=== PATIENT | male | born 1965 | race Caucasian/White ===

== ENCOUNTER 2018-08-27 11:25 | Inpatient (IN) ==
[2018-08-27 12:45] LABS: Basophils # (auto) 0.02 K/uL (0-0.2); Basophils % (auto) 0.1 %; Eosinophils # (auto) 0.03 K/uL (0-0.5); Eosinophils % (auto) 0.2 %; Hematocrit (blood only) 43.8 % (42-52); Hemoglobin 15.5 g/dL (14.0-18.0); Immature Granulocytes # (auto) 0.04 K/uL (0.00-0.02); Immature Granulocytes % (auto) 0.3 %; Lymphocytes # (auto) 0.69 K/uL (1.2-3.4); Lymphocytes % (auto) 4.6 %; Mean Corpuscular Hgb Conc 35.4 g/dL (32-36); Mean Corpuscular Volume 90.9 fL (80-100); Mean Platelet Volume 10.8 fL (7.4-10.4); Monocytes # (auto) 1.81 K/uL (0.11-0.59); Monocytes % (auto) 12.1 %; Neutrophils # (auto) 12.42 K/uL (1.4-6.5); Neutrophils % (auto) 82.7 %; Platelet Count 238 K/uL (130-400); RDW Coefficient of Variation 12.8 % (11.5-14.5); RDW Standard Deviation 42.9 fL (36.4-46.3); Red Blood Count 4.82 M/uL (4.7-6.1); White Blood Count 15.01 K/uL (4.8-10.8)
[2018-08-27 12:55] LABS: INR 1.2 (0.9-1.1); Prothrombin Time 11.9 Seconds (9.0-12.0)
[2018-08-27 13:00] LABS: Albumin Level 3.9 gm/dl (3.4-5.0); BUN Creatinine Ratio 19.8 (10-20); Calcium 9.8 mg/dl (8.5-10.1); Creatinine Clr Calc Pharmacy 82.1 ml/min; Est GFR (African American) 72.4; Est GFR (Non-African American) 62.5; Potassium 3.9 mmol/L (3.5-5.1)
--- NOTE | 2018-08-27 13:02 | XRay Report ---
XR foot RT min 3V routine CLINICAL HISTORY: R foot infection puncture ball of foot COMPARISON: None. DISCUSSION: No acute fractures or dislocations are visualized. 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 There is calcaneal spurring. There are ivana nt calcifications within the plantar fascia posteriorly. No radiopaque foreign bodies are visualized. THERE IS NO EVIDENCE FOR SOFT TISSUE SWELLING. IMPRESSION: 1. No acute fractures 2. Calcaneal spurring 3. Plantar fascial calcification 4. No radiopaque foreign bodies identified Electronically signed by: Elias Lua M.D. 08/27/2018 1:01 PM
[2018-08-27 13:03] LABS: Albumin Globulin Ratio 0.8 (0.9-2); Bilirubin,Total 1.3 mg/dl (0.2-1); Globulin 4.7 gm/dl (2.5-4.0); Total Protein 8.6 gm/dl (6.4-8.2)
--- NOTE | 2018-08-27 13:07 | Emergency Department Note ---
History of Present Illness General Chief complaint: Foot Injury/Pain Stated complaint: RIGHT FOOT Time Seen by Provider: 08/27/18 11:53 History of Present Illness Maximum Pain Intensity: 5 This patient is a 52-year-old male with a history of type 2 diabetes that presents to the emergency department with redness and swelling to the right foot for the last several days. The patient was mowing his lawn and flip-flops 4 days ago and thinks that he may have injured it then. He also reports the following day after mowing, developing a productive cough with green sputum. He denies any shortness of breath. His fever has been hovering around 100 �F. He has been taking Tylenol with minimal relief of his symptoms. The pain in the foot is throbbing in nature. He rates it a 5/10, worse with weightbearing. The patient admits to not taking care of his type 2 diabetes for the last 2 years. Home Medications Home Medications Medication Instructions Recorded Confirmed Type acetaminophen [Acetaminophen Extra 500 mg PO Q6H PRN 08/27/18 08/27/18 History Strength] guaifenesin 1,200 mg PO Q12H PRN 08/27/18 08/27/18 History Allergies Allergy/AdvReac Type Severity Reaction Status Date / Time Penicillins Allergy Intermediate RASH, SOB Verified 08/27/18 12:51 Past Med/Surg History Medical History Acute bronchitis (Acute) Puncture wound of right foot (Acute) Cellulitis of right foot (Acute) Diabetes Social History Preferred Language: Gibraltarian Communication Ability: Effective Auth Specialist Required: No Beliefs That Will Affect Care: None Current Living Situation: Spouse and Family Other Information That Helps Us Care for You: No Feels Safe at Home: Yes Safety Concerns: Feels Safe At This Time Smoking Status: Never smoker Do You Dip or Chew Tobacco: No Second Hand Exposure: No Tobacco Cessation Education Requested by Patient: No Hx Alcohol Use: No Hx Substance Use: No Review of Systems A total of 10 systems reviewed and were otherwise negative Physical Exam Vital Signs Vital Signs - 24 hr 08/27/18 15:09 Temperature 38.3 C H Temperature Source Oral Pulse Rate [Right Finger] 106 H Respiratory Rate 22 Respiratory Effort / Characteristics Non-Labored Spontaneous Respiratory Depth Normal Respiratory Pattern Regular Blood Pressure [Right Arm] 128/80 Blood Pressure Mean [Right Arm] 96 Blood Pressure Position [Right Arm] Lying Pulse Oximetry 97 Oxygen Delivery Method Room Air Constitutional WD/WN, vitals as above Eyes EOM intact bilaterally ENMT Oral mucosa dry Neck trachea midline Respiratory normal respiratory effort, lungs clear to auscultation Cardiovascular RRR, no murmur, no edema Gastrointestinal (Abdomen) normal bowel sounds, soft, nontender, no hepatosplenomegaly Musculoskeletal Diffuse erythema and edema noted to the right foot. There is a 2 mm puncture wound with surrounding blanching noted. No foul odor. Erythematous streaking noted of the anterior lower extremity stopping at the knee. Sensation in the toes is intact. Dorsiflexion and plantarflexion intact. Skin no rashes, warm and dry Neurologic Alert and oriented x3. No focal motor deficits. Psychiatric Acting appropriately Course Patient was seen and examined Vital signs including blood pressure were reviewed medications list was verified with patient Labs were obtained, and a saline lock was established The patient was hydrated with 1 L of normal saline. He declined pain medicat ion. Upon reevaluation, the patient was resting comfortably. We reviewed his results. He voiced understanding. At this time, he was requesting pain medication. He was ordered Toradol 30 mg The case was discussed with case management and subsequently the [facility] hospitalist group. They kindly agreed to evaluate the patient for possible inpatient management. The patient was in agreement. Administered Medications Acetaminophen (Tylenol) 650 mg PO Q4H PRN PRN Reason: pain/fever Stop: 09/26/18 17:47 Last Admin: 08/28/18 08:04 Dose: 650 mg Documented by: [id number] Admin: 08/27/18 20:32 Dose: 650 mg Documented by: [id number] Albuterol (Combivent Respimat) 1 puffs INH QID [facility] Stop: 09/27/18 12:59 Last Admin: 08/28/18 12:48 Dose: 1 puffs Documented by: [id number] Benzonatate (Tessalon Perle) 100 mg PO TID [facility] Stop: 09/27/18 08:59 Last Admin: 08/28/18 14:09 Dose: 100 mg Documented by: [id number] Admin: 08/28/18 08:05 Dose: 100 mg Documented by: [id number] Enoxaparin Sodium (Lovenox) 40 mg SQ Q24H [facility] Stop: 09/26/18 20:59 Last Admin: 08/27/18 20:32 Dose: 40 mg Documented by: [id number] Fexofenadine HCl (Debbie) 60 mg PO BID [facility] Stop: 09/27/18 11:29 Last Admin: 08/28/18 12:40 Dose: 60 mg Documented by: [id number] Guaifenesin (Mucinex) 1,200 mg PO Q12 [facility] Stop: 09/27/18 11:24 Last Admin: 08/28/18 12:40 Dose: 1,200 mg Documented by: [id number] Clindamycin Phosphate 600 mg/ (Dextrose) 54 mls @ 100 mls/hr IV Q8H [facility] Stop: 09/06/18 15:59 Last Infusion: 08/28/18 08:40 Dose: 0 mls/hr Documented by: [id number] Admin: 08/28/18 08:05 Dose: 100 mls/hr Documented by: [id number] Infusion: 08/28/18 00:40 Dose: 100 mls/hr Documented by: [id number] Admin: 08/28/18 00:07 Dose: 100 mls/hr Documented by: [id number] Cefepime HCl 1,000 mg/ Syringe 11.3 mls @ 5.5 mls/min IV Q8H [facility]; Protocol Stop: 09/06/18 17:59 Last Admin: 08/28/18 10:26 Dose: 5.5 mls/min Documented by: [id number] Admin: 08/28/18 01:58 Dose: 5.5 mls/min Documented by: [id number] Sodium Chloride (Nss 1000ml) 1,000 mls @ 80 mls/hr IV .[id number] [facility] Stop: 09/26/18 17:47 Last Admin: 08/28/18 06:25 Dose: 80 mls/hr Documented by: [id number] Infusion: 08/28/18 06:25 Dose: 80 mls/hr Documented by: [id number] Admin: 08/27/18 18:29 Dose: 80 mls/hr Documented by: [id number] Insulin Aspart (Novolog Flexpen) 0 units SC ACHS [facility] Stop: 09/26/18 17:47 Last Admin: 08/28/18 12:45 Dose: 8 units Documented by: [id number] Cosigned by: [id number] Admin: 08/28/18 08:32 Dose: 5 units Documented by: [id number] Cosigned by: [id number] Admin: 08/27/18 21:58 Dose: Not Given Documented by: [id number] Cosigned by: [id number] Admin: 08/27/18 18:44 Dose: 3 units Documented by: [id number] Cosigned by: [id number] Lactobacillus Acidophilus (Floranex) 4 tab PO TIDM [facility] Stop: 09/27/18 11:59 Last Admin: 08/28/18 12:40 Dose: 4 tab Documented by: [id number] Discontinued Medications Diphtheria/Pertussis/Tetanus Vacc (Adacel) 0.5 ml IM .ONCE ONE Stop: 08/28/18 11:22 Last Admin: 08/28/18 12:41 Dose: 0.5 ml Documented by: [id number] Cefepime HCl (Maxipime) 2,000 mg in 20 mls @ 5 mls/min IV NOW STA; Protocol Stop: 08/27/18 15:27 Last Admin: 08/27/18 16:31 Dose: 5 mls/min Documented by: [id number] Vancomycin HCl 2,500 mg/ (Sodium Chloride) 550 mls @ 200 mls/hr IV NOW ONE; Protocol Stop: 08/27/18 18:08 Last Admin: 08/27/18 16:15 Dose: Not Given Documented by: [id number] Clindamycin Phosphate 900 mg/ (Dextrose) 56 mls @ 112 mls/hr IV ONE ONE Stop: 08/27/18 16:19 Last Infusion: 08/27/18 16:36 Dose: 0 mls/hr Documented by: [id number] Admin: 08/27/18 16:10 Dose: 112 mls/hr Documented by: [id number] Vancomycin HCl 2,500 mg/ (Sodium Chloride) 550 mls @ 200 mls/hr IV NOW ONE; Protocol Stop: 08/28/18 13:29 Last Admin: 08/28/18 11:10 Dose: 200 mls/hr Documented by: [id number] Ketorolac Tromethamine (Toradol) 30 mg IV NOW STA Stop: 08/27/18 14:54 Last Admin: 08/27/18 15:11 Dose: 30 mg Documented by: [id number] Medical Decision Making Medical Records Attestation: I reviewed the patient's medical records. Home Medications Current Medication List: was personally reviewed by me Laboratory Data Attestation: I reviewed the patient's lab results. Result diagrams: 08/28/18 05:28 08/28/18 05:28 Lab Results 08/27/18 08/27/18 08/27/18 Range/Units 12:25 12:25 12:25 WBC (4.8-10.8) K/uL RBC (4.7-6.1) M/uL Hgb (14.0-18.0) g/dL Hct (42-52) % MCV (80-100) fL MCH (25-34) pg MCHC (32-36) g/dL RDW Std Deviation (36.4-46.3) fL RDW Coeff of Lisandro (11.5-14.5) % Plt Count (130-400) K/uL MPV (7.4-10.4) fL Immature Gran % (Auto) % Neut % (Auto) % Lymph % (Auto) % [place] % (Auto) % Eos % (Auto) % Baso % (Auto) % Immature Gran # (Auto) (0.00-0.02) K/uL Neut # (Auto) (1.4-6.5) K/uL Lymph # (Auto) (1.2-3.4) K/uL [place] # (Auto) (0.11-0.59) K/uL Eos # (Auto) (0-0.5) K/uL Baso # (Auto) (0-0.2) K/uL PT (9.0-12.0) Seconds INR (0.9-1.1) Sodium (136-145) mmol/L Potassium (3.5-5.1) mmol/L Chloride (98-107) mmol/L Carbon Dioxide (21-32) mmol/L Anion Gap (3-11) BUN (7-18) mg/dl Creatinine (0.6-1.4) mg/dl Est Cr Clr Drug Dosing ml/min Est GFR ( Amer) Est GFR (Non-Af Amer) BUN/Creatinine Ratio (10-20) Glucose (70-99) mg/dl Estimat Average Glucose mg/dl Hemoglobin A1c (4.5-5.6) % Lactate 1.4 (0.4-2.0) mmol/L Calcium (8.5-10.1) mg/dl Total Bilirubin (0.2-1) mg/dl AST (15-37) U/L ALT (12-78) U/L Alkaline Phosphatase (45-117) U/L Total Protein (6.4-8.2) gm/dl Albumin (3.4-5.0) gm/dl Globulin (2.5-4.0) gm/dl Albumin/Globulin Ratio (0.9-2) Procalcitonin 0.24 (0-0.5) ng/ml Acetaminophen < 2 L (10-30) ug/ml Influenza Type A (PCR) (Neg) Influenza Type B (PCR) (Neg) 08/27/18 08/27/18 08/27/18 Range/Units 12:26 12:26 12:26 WBC 15.01 H (4.8-10.8) K/uL RBC 4.82 (4.7-6.1) M/uL Hgb 15.5 (14.0-18.0) g/dL Hct 43.8 (42-52) % MCV 90.9 (80-100) fL MCH 32.2 (25-34) pg MCHC 35.4 (32-36) g/dL RDW Std Deviation 42.9 (36.4-46.3) fL RDW Coeff of Lisandro 12.8 (11.5-14.5) % Plt Count 238 (130-400) K/uL MPV 10.8 H (7.4-10.4) fL Immature Gran % (Auto) 0.3 % Neut % (Auto) 82.7 % Lymph % (Auto) 4.6 % [place] % (Auto) 12.1 % Eos % (Auto) 0.2 % Baso % (Auto) 0.1 % Immature Gran # (Auto) 0.04 H (0.00-0.02) K/uL Neut # (Auto) 12.42 H (1.4-6.5) K/uL Lymph # (Auto) 0.69 L (1.2-3.4) K/uL [place] # (Auto) 1.81 H (0.11-0.59) K/uL Eos # (Auto) 0.03 (0-0.5) K/uL Baso # (Auto) 0.02 (0-0.2) K/uL PT 11.9 (9.0-12.0) Seconds INR 1.2 H (0.9-1.1) Sodium 134 L (136-145) mmol/L Potassium 3.9 (3.5-5.1) mmol/L Chloride 99 (98-107) mmol/L Carbon Dioxide 27 (21-32) mmol/L Anion Gap 7.0 (3-11) BUN 26 H (7-18) mg/dl Creatinine 1.32 (0.6-1.4) mg/dl Est Cr Clr Drug Dosing 82.1 ml/min Est GFR ( Amer) 72.4 Est GFR (Non-Af Amer) 62.5 BUN/Creatinine Ratio 19.8 (10-20) Glucose 226 H (70-99) mg/dl Estimat Average Glucose mg/dl Hemoglobin A1c (4.5-5.6) % Lactate (0.4-2.0) mmol/L Calcium 9.8 (8.5-10.1) mg/dl Total Bilirubin 1.3 H (0.2-1) mg/dl AST 32 (15-37) U/L ALT 61 (12-78) U/L Alkaline Phosphatase 105 (45-117) U/L Total Protein 8.6 H (6.4-8.2) gm/dl Albumin 3.9 (3.4-5.0) gm/dl Globulin 4.7 H (2.5-4.0) gm/dl Albumin/Globulin Ratio 0.8 L (0.9-2) Procalcitonin (0-0.5) ng/ml Acetaminophen (10-30) ug/ml Influenza Type A (PCR) (Neg) Influenza Type B (PCR) (Neg) 08/27/18 08/27/18 Range/Units 12:26 12:28 WBC (4.8-10.8) K/uL RBC (4.7-6.1) M/uL Hgb (14.0-18.0) g/dL Hct (42-52) % MCV (80-100) fL MCH (25-34) pg MCHC (32-36) g/dL RDW Std Deviation (36.4-46.3) fL RDW Coeff of Lisandro (11.5-14.5) % Plt Count (130-400) K/uL MPV (7.4-10.4) fL Immature Gran % (Auto) % Neut % (Auto) % Lymph % (Auto) % [place] % (Auto) % Eos % (Auto) % Baso % (Auto) % Immature Gran # (Auto) (0.00-0.02) K/uL Neut # (Auto) (1.4-6.5) K/uL Lymph # (Auto) (1.2-3.4) K/uL [place] # (Auto) (0.11-0.59) K/uL Eos # (Auto) (0-0.5) K/uL Baso # (Auto) (0-0.2) K/uL PT (9.0-12.0) Seconds INR (0.9-1.1) Sodium (136-145) mmol/L Potassium (3.5-5.1) mmol/L Chloride (98-107) mmol/L Carbon Dioxide (21-32) mmol/L Anion Gap (3-11) BUN (7-18) mg/dl Creatinine (0.6-1.4) mg/dl Est Cr Clr Drug Dosing ml/min Est GFR ( Amer) Est GFR (Non-Af Amer) BUN/Creatinine Ratio (10-20) Glucose (70-99) mg/dl Estimat Average Glucose 209 mg/dl Hemoglobin A1c 8.9 H (4.5-5.6) % Lactate (0.4-2.0) mmol/L Calcium (8.5-10.1) mg/dl Total Bilirubin (0.2-1) mg/dl AST (15-37) U/L ALT (12-78) U/L Alkaline Phosphatase (45-117) U/L Total Protein (6.4-8.2) gm/dl Albumin (3.4-5.0) gm/dl Globulin (2.5-4.0) gm/dl Albumin/Globulin Ratio (0.9-2) Procalcitonin (0-0.5) ng/ml Acetaminophen (10-30) ug/ml Influenza Type A (PCR) Neg for Influ A (Neg) Influenza Type B (PCR) Neg for Influ B (Neg) Imaging Data Attestation: I personally reviewed and interpreted this imaging study as follows : Radiologist's Impression: Foot x-ray IMPRESSION: 1. No acute fractures 2. Calcaneal spurring 3. Plantar fascial calcification 4. No radiopaque foreign bodies identified Electronically signed by: Elias Lua M.D. 08/27/2018 1:01 PM Dictated: 08/27/18 1300 CXR IMPRESSION: No acute process. Electronically signed by: Sami Dozier M.D. 08/27/2018 2:19 PM Dictated: 08/27/18 1416 Transcribed: 08/27/18 1416 Transcribed: 08/27/18 1300 MDM Narrative Differential diagnosis: Cellulitis, osteomyelitis, foreign body, DVT, viral syndrome, pneumonia, bronchitis, among others This patient is a 52-year-old male presents emergency department with redness and swelling to the right foot. On exam, he had a significant cellulitis and what appeared to be a puncture wound in the foot. The patient was febrile tachycardic. The patient has a history of type 2 diabetes, and is currently not on any medication or following with a doctor. The patient also had a respiratory illness. His labs reveal leukocytosis. Imaging was fairly unremarkable. Due to the extent of the cellulitis, leukocytosis tachycardia and fever, hospice consultation was felt warranted. They will evaluate the patient for possible inpatient management. Patient was in agreement with this plan Impression & Plan Cellulitis Discharge Plan Visit Data *Final* Discharge Date/Time: 08/27/18 17:20 Chief Complaint: Foot Injury/Pain Stated Complaint: RIGHT FOOT ED Provider: Narendra Lacey ED Midlevel Provider: Saloni Olivera Discharge Problem: Cellulitis Patient Disposition: Admitted As Inpatient Condition: Fair Discharge Instructions Interventions: ED Discharge Assessment Last Done: 08/27/18 17:20
[2018-08-27 13:18] LABS: Influenza A virus by PCR Neg for Influ A (Neg); Influenza B virus by PCR Neg for Influ B (Neg)
--- NOTE | 2018-08-27 14:21 | XRay Report ---
XR chest 2V routine HISTORY: cough fever COMPARISON: Chest 05/03/2014. FINDINGS: The lungs are clear. Cardiac silhouette is normal in size. No pleural effusions. No pneumot horax. IMPRESSION: No acute process. Electronically signed by: Sami Dozier M.D. 08/27/2018 2:19 PM
[2018-08-27] MEDS ORDERED: KETOROLAC 30 MG/ML VIAL IV STA (14:53)
[2018-08-27] MEDS ORDERED: CEFEPIME 2,000 MG/20 ML VIAL IV STA (15:24)
[2018-08-27] MEDS ORDERED: VANCOMYCIN HCL 2,500 MG in SODIUM CHLORIDE 0.9% 500 ML IV ONE (15:24)
[2018-08-27] MEDS ORDERED: VANCOMYCIN CONSULT ACTIVE PRN (15:24)
[2018-08-27] MEDS ORDERED: CLINDAMYCIN 900 MG in DEXTROSE 5% 50 ML IV ONE (15:50)
--- NOTE | 2018-08-27 16:24 | History & Physical Report ---
Date of Service August 27, 2018 Assessment & Plan (1) Cellulitis of right foot: Administer clindamycin and cefepime to cover anaerobes, gram positives and gram negatives. Obtain wound culture. Serial lab studies Present on Admission?: Yes (2) Puncture wound of right foot: Obtain wound culture Present on Admission?: Yes (3) Acute bronchitis: Obtain sputum culture if sputum is produced Present on Admission?: Yes (4) Diabetes mellitus: ADA diet. Sliding scale insulin coverage as needed. Check hemoglobin A1c. Consider diabetic education Present on Admission?: Yes History of Present Illness Chief Complaint: Productive cough, puncture wound plantar aspect right foot, diffuse swelling erythema and tenderness right foot Primary Care Provider: NO PCP 52-year-old diabetic male who takes no medications. He developed a productive cough several days ago. He also developed swelling tenderness and erythema of the right foot about 3 days ago and noticed a small puncture wound on the right forefoot lateral plantar surface of the right foot. Purulent fluid is able to be expressed. He has a fever and leukocytosis at this time. He does not appear to be septic however with normal lactic acid level. Chest x-ray is clear. He does symptomatically have acute bronchitis. Glucose is 226 nonfasting. He is admitted for further evaluation and treatment. Intravenous clindamycin for gram-positive and anaerobic coverage has been administered in the ED along with cefepime for gram-negative coverage. Allergies Allergy/AdvReac Type Severity Reaction Status Date / Time Penicillins Allergy Intermediate RASH, SOB Verified 08/27/18 12:51 Home Medications Home Medications Medication Instructions Recorded Confirmed Type acetaminophen [Acetaminophen Extra 500 mg PO Q6H PRN 08/27/18 08/27/18 History Strength] guaifenesin 1,200 mg PO Q12H PRN 08/27/18 08/27/18 History Past Med/Surg History Medical History Diabetes Social History Feels Safe at Home: Yes Smoking Status: Never smoker Review of Systems Review of Systems: All systems reviewed & are unremarkable except as noted in HPI & below Musculoskeletal: Swelling and tenderness of the right foot Integumentary: Erythema of the right foot with streaking moving up the right leg anteriorly up to the knee. Puncture wound on the forefoot anterior lateral plantar surface with surrounding pallor. Physical Exam Constitutional: WD/WN, vitals as above no acute distress, not ill appearing and no altered mental status Eyes: PERRL, conjunctivae normal, anicteric sclerae ENMT: external ear and nose normal, oropharynx normal Neck: trachea midline, no thyromegaly Respiratory: Midline rhonchi. No wheezing. No dullness to percussion. Cardiovascular: RRR, no murmur, no edema Gastrointestinal (Abdomen): normal bowel sounds, soft, nontender, no hepatosplenomegaly Musculoskeletal: Mild edema and tenderness of the right foot Skin: Diffuse erythema of the right plantar surface with streaking extending proximally up the right leg up to the knee. Puncture wound with purulent mate rial expressed from the plantar anterior lateral surface with surrounding pale skin which possibly could turn necrotic. Neurologic: CN's II-XI intact bilaterally and moves all extremities; no focal motor deficits Results & Data Vital Signs (Past 12 Hours) Vital Signs Temp Pulse Pulse Resp BP BP Pulse Ox 08/27/18 15:09 38.3 C H 106 H 22 128/80 97 08/27/18 11:29 37 C 109 H 18 172/79 H 97 Laboratory Results 08/27/18 12:26 08/27/18 12:26
[2018-08-27] MEDS ORDERED: ONDANSETRON INJ 2 MG/ML 2 ML VIAL IV PRN (17:48)
[2018-08-27] MEDS ORDERED: ALUMINUM/MAGNESIUM SUSP 30 ML UDC PO PRN (17:48)
[2018-08-27] MEDS: SODIUM CHLORIDE 0.9% 1000ML 1,000 ML IV SCH (18:29)
[2018-08-27] MEDS ORDERED: CARBOHYDRATES FOR HYPOGLYCEMIA PO PRN (18:30)
[2018-08-27] MEDS ORDERED: GLUCOSE 40% GEL 15 GM TUBE PO PRN (18:30)
[2018-08-27] MEDS ORDERED: GLUCOSE 10 TABS/TUBE PO PRN (18:30)
[2018-08-27] MEDS ORDERED: GLUCAGON FOR INJ 1 MG VIAL IM PRN (18:30)
[2018-08-27] MEDS ORDERED: DEXTROSE 50% 50 ML SYRINGE IV PRN (18:30)
[2018-08-27] MEDS: INSULIN ASPART 100 UNITS/ML 3 ML PEN SC SCH ×2 (18:44→21:58)
--- NOTE | 2018-08-27 19:35 | CT Scan Report ---
CT SCAN OF THE RIGHT FOOT WITHOUT IV CONTRAST CLINICAL HISTORY: Puncture wound. Cellulitis. COMPARISON STUDY: Radiographs of the right foot dated 08/27/2018. TECHNIQUE: CT scan of the right foot is performed from the distal tibia and fibula to the base of the foot. Images are reviewed in the axial, sagittal, and coronal planes. IV contrast was not administer ed for this examination as per the referring clinician. A dose lowering technique was utilized adher ing to the principles of ALARA. CT DOSE: 163.15 mGy.cm FINDINGS: The skeletal structures are well mineralized. No fracture is seen. The ankle mortise is int act. The joint spaces of the foot are maintained. There is no bony erosion or periostitis. There is n onspecific sclerosis of the lateral sesamoid at the first metatarsophalangeal joint. Mild degenerativ e spurring is seen along the dorsal aspect of the tarsal bones. There is a dorsal calcaneal enthesoph yte. There is a cutaneous marker present along the plantar aspect of the foot at the level of the fou rth metatarsal head. There is a small cutaneous defect (sagittal image #36) consistent with a history of puncture wound. There is significant dermal thickening as well as subcutaneous and deep soft tiss ue edema at this site. There is subcutaneous fluid, with no evidence of organized fluid collection on this unenhanced examination to suggest abscess. Milder superficial and deep soft tissue edema is pre sent throughout the remainder of the foot. The Achilles tendon is intact as imaged. The anterior, pos terior, and peroneal tendons are grossly intact but suboptimally assessed by CT. There is mild athero sclerotic calcification of the regional arteries. The plantar fascia is normal as visualized. IMPRESSION: 1. No acute bony abnormality is identified in the right foot. 2. There is a small wound identified along the plantar aspect of the foot at the level of the fourth metatarsal head. No radiodense foreign body is identified. 3. There is evidence of cellulitis throughout the foot, greatest on the plantar aspect of the forefoo t. 4. No organized fluid collection is seen on this unenhanced examination to suggest abscess. Dictated: 08/27/2018 6:09 PM Transcribed: 08/27/2018 7:35 PM Florecita [id number] [email or web address] Electronically signed by: Vcítor Brian M.D. 08/27/2018 7:55 PM
[2018-08-27] MEDS: ACETAMINOPHEN 325 MG TAB PO PRN (20:32)
[2018-08-27] MEDS: ENOXAPARIN INJ 40 MG/0.4 ML SYR SQ SCH (20:32)
[2018-08-28] MEDS: CLINDAMYCIN 600 MG in DEXTROSE 5% 50 ML IV SCH ×3 (00:07→15:57)
[2018-08-28] MEDS: CEFEPIME 1,000 MG in SYRINGE 0 ML IV SCH ×3 (01:58→17:46)
[2018-08-28 06:10] LABS: Basophils # (auto) 0.01 K/uL (0-0.2); Basophils % (auto) 0.1 %; Eosinophils % (auto) 0.9 %; Hematocrit (blood only) 37.3 % (42-52); Hemoglobin 12.8 g/dL (14.0-18.0); Immature Granulocytes # (auto) 0.01 K/uL (0.00-0.02); Immature Granulocytes % (auto) 0.1 %; Lymphocytes # (auto) 1.29 K/uL (1.2-3.4); Lymphocytes % (auto) 11.7 %; Mean Corpuscular Hgb Conc 34.3 g/dL (32-36); Mean Corpuscular Volume 91.2 fL (80-100); Mean Platelet Volume 10.8 fL (7.4-10.4); Monocytes # (auto) 1.85 K/uL (0.11-0.59); Monocytes % (auto) 16.8 %; Neutrophils # (auto) 7.76 K/uL (1.4-6.5); Neutrophils % (auto) 70.4 %; Platelet Count 229 K/uL (130-400); RDW Coefficient of Variation 12.9 % (11.5-14.5); RDW Standard Deviation 43.1 fL (36.4-46.3); Red Blood Count 4.09 M/uL (4.7-6.1); White Blood Count 11.02 K/uL (4.8-10.8)
[2018-08-28] MEDS: SODIUM CHLORIDE 0.9% 1000ML 1,000 ML IV SCH ×2 (06:25→23:05)
[2018-08-28 06:40] LABS: BUN Creatinine Ratio 24.9 (10-20); Calcium 8.4 mg/dl (8.5-10.1); Creatinine Clr Calc Pharmacy 91.9 ml/min; Est GFR (African American) 82.9; Est GFR (Non-African American) 71.5
[2018-08-28 06:53] LABS: Estimated Average Glucose 209 mg/dl; Hemoglobin A1C 8.9 % (4.5-5.6)
[2018-08-28] MEDS ORDERED: PNEUMOCOCCAL POLYSACCHARIDES 25 MCG/0.5 ML VIAL/SYR IM ONE (07:15)
[2018-08-28] MEDS ORDERED: PNEUMOCOCCAL ADMINISTRATION CHARGE ONE (07:15)
[2018-08-28] MEDS: ACETAMINOPHEN 325 MG TAB PO PRN ×2 (08:04→16:07)
[2018-08-28] MEDS: BENZONATATE 100 MG CAPSULE PO SCH ×3 (08:05→20:06)
[2018-08-28] MEDS: INSULIN ASPART 100 UNITS/ML 3 ML PEN SC SCH ×4 (08:32→20:57)
[2018-08-28] MEDS ORDERED: VANCOMYCIN CONSULT ACTIVE PRN (09:57)
[2018-08-28] MEDS ORDERED: VANCOMYCIN HCL 2,500 MG in SODIUM CHLORIDE 0.9% 500 ML IV ONE (10:45)
[2018-08-28] MEDS ORDERED: DIPHTHERIA/TETANUS/PERTUSSIS 0.5 ML SYR/VIAL IM ONE (11:21)
--- NOTE | 2018-08-28 11:26 | Hospitalist Progress Note ---
Date of Service August 28, 2018 Assessment & Plan (1) Cellulitis of right foot: Administer clindamycin and cefepime to cover anaerobes, gram positives and gram negatives. Obtain wound culture. Serial lab studies (2) Puncture wound of right foot: Obtain wound culture (3) Acute bronchitis: Obtain sputum culture if sputum is produced (4) Diabetes mellitus: ADA diet. Sliding scale insulin coverage as needed. Check hemoglobin A1c. Consider diabetic education Results & Data Vital Signs (Past 12 Hours) Vital Signs Temp Pulse Pulse Resp BP BP Pulse Ox 08/28/18 07:30 37.9 C H 94 H 18 150/82 H 97 08/27/18 23:58 37.2 C 94 H 18 120/72 95
[2018-08-28] MEDS: LACTOBACILLUS ACIDOPHILUS (FLORANEX) TAB PO SCH ×2 (12:40→16:08)
[2018-08-28] MEDS: FEXOFENADINE 60 MG TAB PO SCH ×2 (12:40→20:08)
[2018-08-28] MEDS: guaiFENesin 600 MG TABCR PO SCH ×2 (12:40→20:07)
[2018-08-28] MEDS: IPRATROPIUM BROMIDE/ALBUTEROL respimat INH INH SCH ×3 (12:48→20:07)
--- NOTE | 2018-08-28 19:57 | Hospitalist Progress Note ---
Date of Service August 28, 2018 Assessment & Plan (1) Cellulitis of right foot: Currently on cefepime/clindamycin. Persistent fevers. Culture taken from puncture wound -- still pending. Gram stain w/ GPC. Add IV vanco. CT right foot w/o deep infection/abscess. The appearance of the plantar aspect of the foot is odd -- the rectangular area of yellow skin appears devitalized, uncertain if it needs debridement Spoke with Dr Esquivel from orthopedics who will consult tomorrow AM Follow all cultures Demarkation lines placed today Present on Admission?: Yes (2) Puncture wound of right foot: as above in "cellulitis" since unknown object caused the puncture will give Adacel booster today Present on Admission?: Yes (3) Acute bronchitis: Add combivent Add mucinex Add brenda BID Incentive spirometry Present on Admission?: Yes (4) Diabetes mellitus: HB a1c 8.9% low threshold for basal insulin cont novolog for now (5) DVT prophylaxis: lovenox 40mg daily continue IVF await ortho consult and cultures Subjective patient with cough, wheeze, congestion (nose and lungs). present for several days. continues with fever. minimal pain right foot. thinks redness of right foot is better. tetanus booster date? stated "I have no idea." he is not sure what he stepped on in his yard when he got the puncture wound. was placing triple abx ointment on plantar aspect of foot and was covering w/ band-aid. Review of Systems Constitutional: + fever Respiratory: + cough, + chest congestion, + sputum production and + wheezing; no dyspnea on exertion Cardiovascular: no chest pain Gastrointestinal: no abdominal pain Physical Exam Constitutional: well developed and well nourished; no acute distress ENMT: Nose: + nasal discharge Throat: + posterior oropharynx abnormality (post-nasal drip w/ mucous) Respiratory: no respiratory distress Auscultation: + wheezes (mild end- exp); no rales Cardiovascular: Rate/Rhythm: regular rate and regular rhythm Heart Sounds: normal S1 and normal S2 Vessels: posterior tibial pulses present and dorsalis pedis pulses present; no JVD Extremities: no edema Gastrointestinal (Abdomen): normal bowel sounds, soft, nontender, no hepatosplenomegaly Skin: puncture wound, plantar aspect of right foot by the 4th metatarsal head; there is a rectangular strip of yellow/white skin extending in either direction from the puncture wound; there is tracking erythema on the lateral and medial aspect of the foot; minimal erythema dorsum of foot; mild generalized edema of right foot Psychiatric: A+Ox3, euthymic affect Results & Data Vital Signs (Past 12 Hours) Vital Signs Temp Pulse Resp BP Pulse Ox 08/28/18 14:30 37.1 C 96 H 18 142/78 H 98 08/28/18 11:55 36.7 C 88 18 140/82 97 Laboratory Results BMP wnl (1) Puncture wound of right foot Encounter type: subsequent encounter Qualified Code(s): S91.331D - Puncture wound without foreign body, right foot, subsequent encounter (2) Acute bronchitis Bronchitis organism: unspecified organism Qualified Code(s): J20.9 - Acute bronchitis, unspecified (3) Diabetes mellitus Diabetes mellitus type: type 2 Diabetes mellitus fci insulin use: wit hout fci use Diabetes mellitus complication status: without complication Qualified Code(s): E11.9 - Type 2 diabetes mellitus without complications
[2018-08-28] MEDS: ENOXAPARIN INJ 40 MG/0.4 ML SYR SQ SCH (20:08)
[2018-08-28] MEDS: VANCOMYCIN HCL 1,500 MG in SODIUM CHLORIDE 0.9% 500 ML IV SCH (21:17)
[2018-08-29] MEDS: CLINDAMYCIN 600 MG in DEXTROSE 5% 50 ML IV SCH ×4 (01:41→23:35)
[2018-08-29] MEDS: CEFEPIME 1,000 MG in SYRINGE 0 ML IV SCH ×3 (02:03→17:44)
[2018-08-29 07:59] LABS: Basophils # (auto) 0.02 K/uL (0-0.2); Basophils % (auto) 0.2 %; Eosinophils # (auto) 0.13 K/uL (0-0.5); Eosinophils % (auto) 1.2 %; Hematocrit (blood only) 36.6 % (42-52); Hemoglobin 12.6 g/dL (14.0-18.0); Immature Granulocytes # (auto) 0.04 K/uL (0.00-0.02); Immature Granulocytes % (auto) 0.4 %; Lymphocytes # (auto) 1.27 K/uL (1.2-3.4); Lymphocytes % (auto) 11.8 %; Mean Corpuscular Hgb Conc 34.4 g/dL (32-36); Monocytes % (auto) 17.7 %; Neutrophils # (auto) 7.37 K/uL (1.4-6.5); Neutrophils % (auto) 68.7 %; Platelet Count 254 K/uL (130-400); RDW Coefficient of Variation 12.9 % (11.5-14.5); RDW Standard Deviation 43.4 fL (36.4-46.3); Red Blood Count 4.02 M/uL (4.7-6.1); White Blood Count 10.73 K/uL (4.8-10.8)
[2018-08-29 08:32] LABS: BUN Creatinine Ratio 19.4 (10-20); Calcium 8.8 mg/dl (8.5-10.1); Creatinine Clr Calc Pharmacy 111.8 ml/min; Est GFR (African American) 105.1; Est GFR (Non-African American) 90.7; Potassium 4.1 mmol/L (3.5-5.1)
[2018-08-29] MEDS: SODIUM CHLORIDE 0.9% 1000ML 1,000 ML IV SCH (09:06)
[2018-08-29] MEDS: BENZONATATE 100 MG CAPSULE PO SCH ×3 (09:10→20:37)
[2018-08-29] MEDS: LACTOBACILLUS ACIDOPHILUS (FLORANEX) TAB PO SCH ×3 (09:10→16:23)
[2018-08-29] MEDS: FEXOFENADINE 60 MG TAB PO SCH ×2 (09:10→20:35)
[2018-08-29] MEDS: guaiFENesin 600 MG TABCR PO SCH ×2 (09:11→20:32)
[2018-08-29] MEDS: VANCOMYCIN HCL 1,500 MG in SODIUM CHLORIDE 0.9% 500 ML IV SCH (09:11)
[2018-08-29] MEDS: IPRATROPIUM BROMIDE/ALBUTEROL respimat INH INH SCH ×4 (09:11→20:33)
[2018-08-29] MEDS: INSULIN ASPART 100 UNITS/ML 3 ML PEN SC SCH ×4 (09:12→20:36)
[2018-08-29] MEDS: ACETAMINOPHEN 325 MG TAB PO PRN ×3 (09:47→23:34)
--- NOTE | 2018-08-29 14:23 | Hospitalist Progress Note ---
Date of Service August 29, 2018 Assessment & Plan (1) Cellulitis of right foot: Currently on cefepime/clindamycin/Vanco. Fevers hopefully are resolved Culture taken from puncture wound with Group B Strep Able to express purulent drainage from foot today and does appear significantly edematous and erythematous although slightly improved compared to pictures on pt's cell phone from previous Will dc Vanco and continue Clinda and Cefepime for now, consider discontinuing Cefepime tomorrow if no other organisms grow out CT right foot on 08/27 w/o deep infection/abscess but could develop. The appearance of the plantar aspect of the foot is odd -- the rectangular area of yellow skin likely due to separation of dermis from infection as per Ortho Appreciate consultation from Dr Esquivel from orthopedics -may end up doing debridement Continue to follow cultures and follow clinical appearance (2) Puncture wound of right foot: as above in "cellulitis" -was given Adacel booster on 08/28/18 (3) Acute bronchitis: Improved as per patient. Lungs clear on exam -continue combivent, mucinex, brenda BID -continue Incentive spirometry (4) Diabetes mellitus: HB a1c 8.9% With hyperglycemia today -add Lantus 8 units qhs -tighten down range, CF for Novolog (5) DVT prophylaxis: lovenox 40mg daily dc IVFs Dispo-continued stay Subjective Pt still feeling pain in the foot but improved swelling. Still coughing but improved from previous. No chest pain except with hard coughing Discussed the case with Ortho. Review of Systems Review of Systems: All systems reviewed & are unremarkable except as noted in HPI & below Physical Exam Constitutional: WD/WN, vitals as above ENMT: external ear and nose normal, oropharynx normal Neck: trachea midline, no thyromegaly Respiratory: normal respiratory effort, lungs clear to auscultation Cardiovascular: Rate/Rhythm: regular rate and regular rhythm Heart Sounds: no murmur Extremities: + edema (right foot and ankle with 1+ edema) Gastrointestinal (Abdomen): normal bowel sounds, soft, nontender, no hepatosplenomegaly Musculoskeletal: Extremities: no cyanosis and no clubbing Skin: + rash (erythema over right dorsum of foot and lateral ankle) and + wound (right plantar surface over 4th MT head with puncture wound draining pus) 2 cm x 5 cm strip of blanched skin from puncture wound spreading medially Neurologic: moves all extremities and awake; no focal motor deficits Psychiatric: A+Ox3, euthymic affect Results & Data Vital Signs (Past 12 Hours) Vital Signs Temp Pulse Resp BP Pulse Ox 08/29/18 07:33 37.3 C 91 H 20 133/82 96 Laboratory Results 08/29/18 08/29/18 08/29/18 Range/Units 11:43 08:07 07:40 WBC (4.8-10.8) K/uL RBC (4.7-6.1) M/uL Hgb (14.0-18.0) g/dL Hct (42-52) % MCV (80-100) fL MCH (25-34) pg MCHC (32-36) g/dL RDW Std Deviation (36.4-46.3) fL RDW Coeff of Lisandro (11.5-14.5) % Plt Count (130-400) K/uL MPV (7.4-10.4) fL Immature Gran % (Auto) % Neut % (Auto) % Lymph % (Auto) % Barren % (Auto) % Eos % (Auto) % Baso % (Auto) % Immature Gran # (Auto) (0.00-0.02) K/uL Neut # (Auto) (1.4-6.5) K/uL Lymph # (Auto) (1.2-3.4) K/uL Barren # (Auto) (0.11-0.59) K/uL Eos # (Auto) (0-0.5) K/uL Baso # (Auto) (0-0.2) K/uL Sodium 137 (136-145) mmol/L Potassium 4.1 (3.5-5.1) mmol/L Chloride 105 (98-107) mmol/L Carbon Dioxide 26 (21-32) mmol/L Anion Gap 6.0 (3-11) BUN 19 H (7-18) mg/dl Creatinine 0.97 (0.6-1.4) mg/dl Est Cr Clr Drug Dosing 111.8 ml/min Est GFR ( Amer) 105.1 Est GFR (Non-Af Amer) 90.7 BUN/Creatinine Ratio 19.4 (10-20) Glucose 142 H (70-99) mg/dl POC Glucose 205 H 139 H (70-99) Calcium 8.8 (8.5-10.1) mg/dl 08/29/18 08/28/18 08/28/18 Range/Units 07:40 20:39 16:37 WBC 10.73 (4.8-10.8) K/uL RBC 4.02 L (4.7-6.1) M/uL Hgb 12.6 L (14.0-18.0) g/dL Hct 36.6 L (42-52) % MCV 91.0 (80-100) fL MCH 31.3 (25-34) pg MCHC 34.4 (32-36) g/dL RDW Std Deviation 43.4 (36.4-46.3) fL RDW Coeff of Lisandro 12.9 (11.5-14.5) % Plt Count 254 (130-400) K/uL MPV 10.0 (7.4-10.4) fL Immature Gran % (Auto) 0.4 % Neut % (Auto) 68.7 % Lymph % (Auto) 11.8 % Barren % (Auto) 17.7 % Eos % (Auto) 1.2 % Baso % (Auto) 0.2 % Immature Gran # (Auto) 0.04 H (0.00-0.02) K/uL Neut # (Auto) 7.37 H (1.4-6.5) K/uL Lymph # (Auto) 1.27 (1.2-3.4) K/uL Barren # (Auto) 1.90 H (0.11-0.59) K/uL Eos # (Auto) 0.13 (0-0.5) K/uL Baso # (Auto) 0.02 (0-0.2) K/uL Sodium (136-145) mmol/L Potassium (3.5-5.1) mmol/L Chloride (98-107) mmol/L Carbon Dioxide (21-32) mmol/L Anion Gap (3-11) BUN (7-18) mg/dl Creatinine (0.6-1.4) mg/dl Est Cr Clr Drug Dosing ml/min Est GFR ( Amer) Est GFR (Non-Af Amer) BUN/Creatinine Ratio (10-20) Glucose (70-99) mg/dl POC Glucose 171 H 158 H (70-99) Calcium (8.5-10.1) mg/dl (1) Puncture wound of right foot Encounter type: subsequent encounter Qualified Code(s): S91.331D - Puncture wound without foreign body, right foot, subsequent encounter (2) Acute bronchitis Bronchitis organism: unspecified organism Qualified Code(s): J20.9 - Acute bronchitis, unspecified (3) Diabetes mellitus Diabetes mellitus type: type 2 Diabetes mellitus longterm insulin use: without track fitter use Diabetes mellitus complication status: without complication Qualified Code(s): E11.9 - Type 2 diabetes mellitus without complications
[2018-08-29] MEDS ORDERED: COUGH DROP (SUGAR FREE) LOZ 24 LOZ/1 BOX BUCCAL PRN (15:37)
[2018-08-29] MEDS: GUAIFENESIN/CODEINE 100MG/10MG 5ML UDC PO PRN ×2 (16:22→23:34)
[2018-08-29] MEDS: ENOXAPARIN INJ 40 MG/0.4 ML SYR SQ SCH (20:33)
[2018-08-29] MEDS: INSULIN GLARGINE SOLOSTAR 100 UNITS/ML 3 ML PEN SC SCH (20:34)
--- NOTE | 2018-08-29 23:41 | Consultation Report ---
DATE OF CONSULTATION: 08/29/2018 PERTINENT HISTORY: This is a 52-year-old gentleman seen at the request of Dr. Serrano and Dr. Acosta regarding a puncture wound of his plantar right foot with cellulitis. This diabetic 52-year-old gentleman was in his usual state of health and had a puncture wound of his right foot. He continue to work, he noticed this last Thursday and noticed worsening swelling, redness and tenderness of the plantar right foot which expanded proximally. He then began to have sweating, fevers and chills while he was at work and on Thursday, then presented to [facility] on 08/27/2018, seen by the emergency physician and admitted to the hospital to the hospitalist service. Placed on IV antibiotics, cefepime and clindamycin and orthopedics was then consulted. PAST MEDICAL HISTORY: Diabetes mellitus for 27 years, currently on insulin; history of morbid obesity corrected by diet. PAST SURGICAL HISTORY: Noncontributory. ALLERGIES: PENICILLIN, intermediate rash, shortness of breath as a child. MEDICATIONS: Acetaminophen and guaifenesin. SOCIAL HISTORY: Denies tobacco, drug use or significant alcohol use. He is employed. He lives with his family. PHYSICAL EXAMINATION: This is a 52-year-old gentleman who is well nourished, well hydrated, in no acute distress, lying supine in hospital room bed. His family is present at bedside. Alert and oriented x3. Speech clear and fluent. Affect is appropriate. Lower extremity examination demonstrates a normal hair growth and distribution. Erythema expanded to the proximal mid foot with some streaking plantar medial with a line of demarcation with a pen noted. There is no expanded beyond the pen line. No proximal streaking or phlebitis noted. No tenderness or ropiness at the ankle or proximal. There is tenderness to palpation at the plantar aspect of the foot adjacent to the fourth metatarsal head puncture/ulcer. There appears to be some ellipsoid defect of the epidermis from the lower dermis potentially with some fluid coalescence however, it is not particularly fluctuant at the site. The ulcer measures approximately 4 mm in diameter. There is ability to express some purulence from the puncture site. Pulses are palpable, bilateral feet. There is a loss of sensation at the forefoot bilaterally, more pronounced on the right than the left. Range of motion is limited in the right foot compared to the left due to swelling and some guarding. No pain upon passive stretch or passive dorsiflexion or plantarflexion of the toes. Radiographs and laboratories reviewed. IMPRESSION: 1. Puncture plantar right foot adjacent to the fourth metatarsal head. 2. Cellulitis of the right foot. 3. Diabetes mellitus. 4. Neuropathy. RECOMMENDATION: Continue on IV antibiotics, cefepime and clindamycin are appropriate at this time. Will follow with you. Limit weightbearing on the right lower extremity to his heel only for transfers. Will assess again tomorrow. Should he have an abscess coalescence, then he would be a candidate for a surgical incision and drainage with debridement. Thank you for the opportunity to consult in the care of this patient. I attest to the content of the Intraoperative Record and any orders documented therein. Any exceptions are noted below. ALEXANDRA
[2018-08-30] MEDS: CEFEPIME 1,000 MG in SYRINGE 0 ML IV SCH ×3 (01:55→18:01)
[2018-08-30 06:06] LABS: Basophils # (auto) 0.04 K/uL (0-0.2); Basophils % (auto) 0.4 %; Eosinophils # (auto) 0.19 K/uL (0-0.5); Eosinophils % (auto) 1.9 %; Hematocrit (blood only) 34.8 % (42-52); Hemoglobin 11.9 g/dL (14.0-18.0); Immature Granulocytes # (auto) 0.02 K/uL (0.00-0.02); Immature Granulocytes % (auto) 0.2 %; Lymphocytes # (auto) 1.95 K/uL (1.2-3.4); Lymphocytes % (auto) 19.4 %; Mean Corpuscular Hgb Conc 34.2 g/dL (32-36); Mean Corpuscular Volume 90.9 fL (80-100); Mean Platelet Volume 9.7 fL (7.4-10.4); Neutrophils # (auto) 6.23 K/uL (1.4-6.5); Neutrophils % (auto) 62.1 %; Platelet Count 242 K/uL (130-400); RDW Standard Deviation 43.6 fL (36.4-46.3); Red Blood Count 3.83 M/uL (4.7-6.1); White Blood Count 10.03 K/uL (4.8-10.8)
[2018-08-30 06:40] LABS: BUN Creatinine Ratio 17.2 (10-20); Calcium 8.8 mg/dl (8.5-10.1); Creatinine Clr Calc Pharmacy 117.8 ml/min; Est GFR (Non-African American) 96.6
[2018-08-30] MEDS ORDERED: VANCOMYCIN TROUGH ONE (07:30)
--- NOTE | 2018-08-30 08:17 | Orthopedic Progress Note ---
Date of Service August 30, 2018 Assessment & Plan (1) Puncture wound of right foot: Continue IV antibiotics per medicine team. Group B Beta Strep on cultures. Will discuss exam with surgeons today for continued conservative care vs. I & D. Limit WB RLE. (2) Cellulitis of right foot: Subjective States the right foot is feeling better overall. Notes a big improvement from time of admission and shared pictures from his phone. No other right foot complaints today. Physical Exam Constitutional: WD/WN, vitals as above Musculoskeletal: Right foot: mild to moderate swelling. Large improvement compared to the severe swelling at the time of admission. Improved erythema. Plantar foot hypopigmented area is much improved. Continue mild purulent d/c from the puncture wound at the plantar 4th metatarsal head. No fluctuance noted today with palpation of the foot. Psychiatric: A+Ox3, euthymic affect Results & Data Vital Signs (Past 12 Hours) Vital Signs Temp Pulse Pulse Resp BP BP Pulse Ox 08/30/18 07:44 37.6 C H 88 16 151/83 H 95 08/29/18 23:25 38.8 C H 97 H 20 154/83 H 95 (1) Puncture wound of right foot Encounter type: subsequent encounter Qualified Code(s): S91.331D - Puncture wound without foreign body, right foot, subsequent encounter
[2018-08-30] MEDS: CLINDAMYCIN 600 MG in DEXTROSE 5% 50 ML IV SCH ×3 (08:26→23:47)
[2018-08-30] MEDS: FEXOFENADINE 60 MG TAB PO SCH ×2 (08:26→20:33)
[2018-08-30] MEDS: LACTOBACILLUS ACIDOPHILUS (FLORANEX) TAB PO SCH ×3 (08:26→18:01)
[2018-08-30] MEDS: guaiFENesin 600 MG TABCR PO SCH ×2 (08:27→20:35)
[2018-08-30] MEDS: INSULIN ASPART 100 UNITS/ML 3 ML PEN SC SCH ×4 (08:27→20:36)
[2018-08-30] MEDS: BENZONATATE 100 MG CAPSULE PO SCH ×3 (08:27→20:36)
[2018-08-30] MEDS: IPRATROPIUM BROMIDE/ALBUTEROL respimat INH INH SCH ×4 (08:27→20:34)
[2018-08-30] MEDS: GUAIFENESIN/CODEINE 100MG/10MG 5ML UDC PO PRN (11:37)
[2018-08-30] MEDS: ACETAMINOPHEN 325 MG TAB PO PRN ×3 (11:37→20:46)
--- NOTE | 2018-08-30 14:28 | Hospitalist Progress Note ---
Date of Service August 30, 2018 Assessment & Plan (1) Cellulitis of right foot: Improving and seems to be forming an abscess now -continue clindamycin and Cefepime for broad range coverage given puncture wound and is a diabetic (Pseudomonas) with puncture through a shoe Fevers continue Culture taken from puncture wound with Group B Strep CT right foot on 08/27 w/o deep infection/abscess but could develop. Appreciate Ortho consult-continue to observe and if worsening, will take for debridement Continue to follow cultures and follow clinical appearance (2) Puncture wound of right foot: as above in "cellulitis" -was given Adacel booster on 08/28/18 (3) Acute bronchitis: Improved as per patient. Lungs clear on exam -continue combivent, mucinex, brenda BID -continue Incentive spirometry -continue cough syrup (4) Diabetes mellitus: HB a1c 8.9% With hyperglycemia now improved with increased doses of insulin -continue Lantus 8 units qhs -continue Novolog -consider starting [place] XR on dc (previously could not paris IR version due to diarrhea) (5) DVT prophylaxis: lovenox 40mg daily Dispo-continued stay Subjective Feeling more pressure on bottom of foot. Still coughing but cough syrup helping. I discussed his care with Ortho PA still spiking fevers Review of Systems Review of Systems: All systems reviewed & are unremarkable except as noted in HPI & below Physical Exam Constitutional: WD/WN, vitals as above ENMT: external ear and nose normal, oropharynx normal Neck: trachea midline, no thyromegaly Respiratory: normal respiratory effort, lungs clear to auscultation Cardiovascular: Rate/Rhythm: regular rate and regular rhythm Heart Sounds: no murmur Extremities: + edema (right foot and ankle with 1+ edema slightly improved) Gastrointestinal (Abdomen): normal bowel sounds, soft, nontender, no hepatosplenomegaly Musculoskeletal: Extremities: no cyanosis and no clubbing Skin: + rash (erythema over right dorsum of foot and lateral ankle improved) and + wound (right plantar surface over 4th MT head with puncture wound draining pus) area of blanched skin is now more coalesced and bubbling out, forming a [place] Neurologic: moves all extremities and awake; no focal motor deficits Psychiatric: A+Ox3, euthymic affect Results & Data Vital Signs (Past 12 Hours) Vital Signs Temp Pulse Resp BP Pulse Ox 08/30/18 07:44 37.6 C H 88 16 151/83 H 95 Laboratory Results 08/30/18 08/30/18 08/30/18 Range/Units 11:42 07:56 05:45 WBC (4.8-10.8) K/uL RBC (4.7-6.1) M/uL Hgb (14.0-18.0) g/dL Hct (42-52) % MCV (80-100) fL MCH (25-34) pg MCHC (32-36) g/dL RDW Std Deviation (36.4-46.3) fL RDW Coeff of Lisandro (11.5-14.5) % Plt Count (130-400) K/uL MPV (7.4-10.4) fL Immature Gran % (Auto) % Neut % (Auto) % Lymph % (Auto) % Taney % (Auto) % Eos % (Auto) % Baso % (Auto) % Immature Gran # (Auto) (0.00-0.02) K/uL Neut # (Auto) (1.4-6.5) K/uL Lymph # (Auto) (1.2-3.4) K/uL Taney # (Auto) (0.11-0.59) K/uL Eos # (Auto) (0-0.5) K/uL Baso # (Auto) (0-0.2) K/uL Sodium 137 (136-145) mmol/L Potassium 4.0 (3.5-5.1) mmol/L Chloride 104 (98-107) mmol/L Carbon Dioxide 26 (21-32) mmol/L Anion Gap 7.0 (3-11) BUN 16 (7-18) mg/dl Creatinine 0.92 (0.6-1.4) mg/dl Est Cr Clr Drug Dosing 117.8 ml/min Est GFR ( Amer) 112.0 Est GFR (Non-Af Amer) 96.6 BUN/Creatinine Ratio 17.2 (10-20) Glucose 123 H (70-99) mg/dl POC Glucose 161 H 140 H (70-99) Calcium 8.8 (8.5-10.1) mg/dl 08/30/18 08/29/18 08/29/18 Range/Units 05:45 20:08 16:45 WBC 10.03 (4.8-10.8) K/uL RBC 3.83 L (4.7-6.1) M/uL Hgb 11.9 L (14.0-18.0) g/dL Hct 34.8 L (42-52) % MCV 90.9 (80-100) fL MCH 31.1 (25-34) pg MCHC 34.2 (32-36) g/dL RDW Std Deviation 43.6 (36.4-46.3) fL RDW Coeff of Lisandro 13.0 (11.5-14.5) % Plt Count 242 (130-400) K/uL MPV 9.7 (7.4-10.4) fL Immature Gran % (Auto) 0.2 % Neut % (Auto) 62.1 % Lymph % (Auto) 19.4 % Taney % (Auto) 16.0 % Eos % (Auto) 1.9 % Baso % (Auto) 0.4 % Immature Gran # (Auto) 0.02 (0.00-0.02) K/uL Neut # (Auto) 6.23 (1.4-6.5) K/uL Lymph # (Auto) 1.95 (1.2-3.4) K/uL Taney # (Auto) 1.60 H (0.11-0.59) K/uL Eos # (Auto) 0.19 (0-0.5) K/uL Baso # (Auto) 0.04 (0-0.2) K/uL Sodium (136-145) mmol/L Potassium (3.5-5.1) mmol/L Chloride (98-107) mmol/L Carbon Dioxide (21-32) mmol/L Anion Gap (3-11) BUN (7-18) mg/dl Creatinine (0.6-1.4) mg/dl Est Cr Clr Drug Dosing ml/min Est GFR ( Amer) Est GFR (Non-Af Amer) BUN/Creatinine Ratio (10-20) Glucose (70-99) mg/dl POC Glucose 144 H 153 H (70-99) Calcium (8.5-10.1) mg/dl (1) Puncture wound of right foot Encounter type: subsequent encounter Qualified Code(s): S91.331D - Puncture wound without foreign body, right foot, subsequent encounter (2) Acute bronchitis Bronchitis organism: unspecified organism Qualified Code(s): J20.9 - Acute bronchitis, unspecified (3) Diabetes mellitus Diabetes mellitus type: type 2 Diabetes mellitus long term acute care registered nurse insulin use: without senior living use Diabetes mellitus complication status: without complication Qualified Code(s): E11.9 - Type 2 diabetes mellitus without complications
[2018-08-30] MEDS: INSULIN GLARGINE SOLOSTAR 100 UNITS/ML 3 ML PEN SC SCH (20:34)
[2018-08-30] MEDS: ENOXAPARIN INJ 40 MG/0.4 ML SYR SQ SCH (20:35)
[2018-08-31] MEDS: CEFEPIME 1,000 MG in SYRINGE 0 ML IV SCH ×2 (02:51→09:03)
[2018-08-31] MEDS: FEXOFENADINE 60 MG TAB PO SCH ×2 (08:22→21:45)
[2018-08-31] MEDS: IPRATROPIUM BROMIDE/ALBUTEROL respimat INH INH SCH ×4 (08:22→21:43)
[2018-08-31] MEDS: LACTOBACILLUS ACIDOPHILUS (FLORANEX) TAB PO SCH ×3 (08:22→18:07)
[2018-08-31] MEDS: CLINDAMYCIN 600 MG in DEXTROSE 5% 50 ML IV SCH ×3 (08:22→23:31)
[2018-08-31] MEDS: guaiFENesin 600 MG TABCR PO SCH ×2 (08:22→21:45)
[2018-08-31] MEDS: INSULIN ASPART 100 UNITS/ML 3 ML PEN SC SCH ×4 (08:23→21:39)
[2018-08-31] MEDS: BENZONATATE 100 MG CAPSULE PO SCH ×3 (08:23→21:45)
[2018-08-31 08:32] LABS: Creatinine Clr Calc Pharmacy 121.8 ml/min; Est GFR (African American) 115.6; Est GFR (Non-African American) 99.7
--- NOTE | 2018-08-31 11:41 | Hospitalist Progress Note ---
Date of Service August 31, 2018 Assessment & Plan (1) Cellulitis of right foot: Now afebrile for 24 hours, and has formed an abscess in the plantar surface of the forefoot lateral to the puncture wound which is still draining pus with pressure Culture taken from puncture wound with Group B Strep CT right foot on 08/27 (day of admission) w/o deep infection/abscess but now this has formed as above -Discontinue cefepime -Continue clindamycin -I feel this patient needs incision and drainage at this point as abscess has formed and he continues to have significant erythema and edema of the foot and ankle -Advised patient to remain n.p.o. for now-I attempted to contact orthopedic surgery and am awaiting a call back (2) Puncture wound of right foot: as above in "cellulitis" -was given Adacel booster on 08/28/18 (3) Acute bronchitis: Improved as per patient. Lungs clear on exam -continue combivent, mucinex, brenda BID -continue Incentive spirometry -continue cough syrup (4) Diabetes mellitus: HB a1c 8.9% With hyperglycemia which is now resolved with increased doses of insulin -continue Lantus 8 units qhs -continue Novolog -Will start metformin XR on dc (previously could not paris IR version due to diarrhea) (5) DVT prophylaxis: lovenox 40mg daily Dispo-continued stay, possible surgical debridement Subjective Patient feels unchanged from previous. Reports he still has foot and ankle swelling and some pain. He has not spiked a fever now in the last 24 hours. Cough is improving as well. Review of Systems Review of Systems: All systems reviewed & are unremarkable except as noted in HPI & below Physical Exam Constitutional: WD/WN, vitals as above Eyes: + anicteric sclerae Neck: trachea midline, no thyromegaly Respiratory: normal respiratory effort, lungs clear to auscultation + cough (Dry cough with deep inspiration) Cardiovascular: Rate/Rhythm: regular rate and regular rhythm Heart Sounds: no murmur Extremities: + edema (right foot and ankle with 1+ edema not improved from yesterday) Gastrointestinal (Abdomen): normal bowel sounds, soft, nontender, no hepatospl enomegaly Musculoskeletal: Extremities: no cyanosis and no clubbing Skin: + rash (erythema over right dorsum of foot and lateral ankle stable from yesterday) and + wound (right plantar surface over 4th MT head with puncture wound draining pus) Plantar surface of forefoot with large area of fluctuance extending all the way now to the fifth metatarsal head Neurologic: moves all extremities and awake; no focal motor deficits Psychiatric: A+Ox3, euthymic affect Results & Data Vital Signs (Past 12 Hours) Vital Signs Temp Pulse Pulse Resp BP Pulse Ox 08/31/18 07:28 37.3 C 89 18 152/87 H 94 08/31/18 00:38 36.8 C 84 18 135/79 96 Laboratory Results 08/31/18 08/31/18 08/30/18 Range/Units 07:42 07:31 20:02 Creatinine 0.89 (0.6-1.4) mg/dl Est Cr Clr Drug Dosing 121.8 ml/min Est GFR ( Amer) 115.6 Est GFR (Non-Af Amer) 99.7 POC Glucose 118 H 157 H (70-99) 08/30/18 08/30/18 Range/Units 17:02 11:42 Creatinine (0.6-1.4) mg/dl Est Cr Clr Drug Dosing ml/min Est GFR ( Amer) Est GFR (Non-Af Amer) POC Glucose 146 H 161 H (70-99) (1) Puncture wound of right foot Encounter type: subsequent encounter Qualified Code(s): S91.331D - Puncture wound without foreign body, right foot, subsequent encounter (2) Acute bronchitis Bronchitis organism: unspecified organism Qualified Code(s): J20.9 - Acute bronchitis, unspecified (3) Diabetes mellitus Diabetes mellitus type: type 2 Diabetes mellitus keno terminal operator insulin use: without keno terminal operator use Diabetes mellitus complication status: without complication Qualified Code(s): E11.9 - Type 2 diabetes mellitus without complications
--- NOTE | 2018-08-31 19:26 | Orthopedic Progress Note ---
Date of Service August 31, 2018 Assessment & Plan (1) Puncture wound of right foot: Continue IV antibiotics per medicine team. Group B Beta Strep on cultures. NWB RLE Would benefit from local I+D, NPO after midnight, plan for OR 09/01/18 Ice/elevation RLE (2) Cellulitis of right foot: Subjective Patient seen laying in bed, comfortable, pain controlled, no acute issues overnight Review of Systems Review of Systems: All systems reviewed & are unremarkable except as noted in HPI & below Constitutional: as per Subjective / HPI Physical Exam Physical Exam: RLE NVSI +EHL/FHL/TA/GS SILT grossly, +2 DP pulse, compartments soft NT, +edema/errythema foot, pin point wound plantar forefoot with scant purulence, +fluctuance Constitutional: WD/WN, vitals as above Results & Data Vital Signs (Past 12 Hours) Vital Signs Temp Pulse Resp BP Pulse Ox 08/31/18 14:50 37.4 C 91 H 16 155/89 H 97 08/31/18 07:28 37.3 C 89 18 152/87 H 94 (1) Puncture wound of right foot Encounter type: subsequent encounter Qualified Code(s): S91.331D - Puncture wound without foreign body, right foot, subsequent encounter
[2018-08-31] MEDS: ENOXAPARIN INJ 40 MG/0.4 ML SYR SQ SCH (21:43)
[2018-08-31] MEDS: INSULIN GLARGINE SOLOSTAR 100 UNITS/ML 3 ML PEN SC SCH (21:46)
[2018-08-31] MEDS: GUAIFENESIN/CODEINE 100MG/10MG 5ML UDC PO PRN (23:40)
[2018-09-01 06:04] LABS: Basophils # (auto) 0.02 K/uL (0-0.2); Basophils % (auto) 0.3 %; Eosinophils # (auto) 0.24 K/uL (0-0.5); Hematocrit (blood only) 36.5 % (42-52); Hemoglobin 12.4 g/dL (14.0-18.0); Immature Granulocytes # (auto) 0.04 K/uL (0.00-0.02); Immature Granulocytes % (auto) 0.5 %; Lymphocytes # (auto) 1.87 K/uL (1.2-3.4); Lymphocytes % (auto) 23.6 %; Mean Corpuscular Volume 90.3 fL (80-100); Mean Platelet Volume 9.2 fL (7.4-10.4); Monocytes # (auto) 1.09 K/uL (0.11-0.59); Monocytes % (auto) 13.7 %; Neutrophils # (auto) 4.68 K/uL (1.4-6.5); Neutrophils % (auto) 58.9 %; Platelet Count 327 K/uL (130-400); Red Blood Count 4.04 M/uL (4.7-6.1); White Blood Count 7.94 K/uL (4.8-10.8)
[2018-09-01 06:36] LABS: BUN Creatinine Ratio 17.5 (10-20); Creatinine Clr Calc Pharmacy 111.8 ml/min; Est GFR (African American) 105.1; Est GFR (Non-African American) 90.7
[2018-09-01] MEDS: INSULIN ASPART 100 UNITS/ML 3 ML PEN SC SCH ×4 (06:59→21:03)
[2018-09-01] MEDS: CLINDAMYCIN 600 MG in DEXTROSE 5% 50 ML IV SCH ×3 (08:07→23:30)
[2018-09-01] MEDS: LACTOBACILLUS ACIDOPHILUS (FLORANEX) TAB PO SCH ×3 (08:07→17:04)
[2018-09-01] MEDS: FEXOFENADINE 60 MG TAB PO SCH ×2 (08:08→21:08)
[2018-09-01] MEDS: BENZONATATE 100 MG CAPSULE PO SCH ×3 (08:08→21:08)
[2018-09-01] MEDS: IPRATROPIUM BROMIDE/ALBUTEROL respimat INH INH SCH ×4 (08:08→21:05)
[2018-09-01] MEDS: guaiFENesin 600 MG TABCR PO SCH ×2 (08:08→21:08)
--- NOTE | 2018-09-01 13:16 | Anesthesiology Consultation ---
Date of Service September 01, 2018 Assessment & Plan (1) Encounter for pre-operative examination: Chart Review Chart Review: Acceptable Risk for Surgery Consults Requested none ASA ASA3 Proposed Anesthesia Anesthesia Type: General Risk / Benefits Reviewed With: PT / POA / Parent / Guardian, Accepts Plan and Informed Consent Obtained History Surgery Operation Date: 09/01/18 10:10 Proposed Procedures p Right Foot Incision and Drainage - Jeremías Young DO Height/Weight Height: 6 ft Weight: 100.4 kg Allergies Allergy/AdvReac Type Severity Reaction Status Date / Time Penicillins Allergy Intermediate RASH, SOB Verified 08/27/18 12:51 Medications Home Medications Medication Instructions Recorded Confirmed Last Taken acetaminophen [Acetaminophen Extra 500 mg PO Q6H PRN 08/27/18 08/27/18 08/27/18 Strength] guaifenesin 1,200 mg PO Q12H PRN 08/27/18 08/27/18 08/26/18 Active Medications Generic Name Dose Route Start Last Admin Trade Name Freq PRN Reason Stop Dose Admin Acetaminophen 650 mg 08/27/18 17:48 08/30/18 20:46 Tylenol PO 09/26/18 17:47 650 mg Q4H PRN Administration pain/fever Albuterol 1 puffs 08/28/18 13:00 09/01/18 08:08 Combivent Respimat INH 09/27/18 12:59 1 puffs QID ELSIE Administration Benzonatate 100 mg 08/28/18 09:00 09/01/18 08:08 Tessalon Perle PO 09/27/18 08:59 Not Given TID ELSIE Enoxaparin Sodium 40 mg 08/27/18 21:00 08/31/18 21:43 Lovenox SQ 09/26/18 20:59 40 mg Q24H ELSIE Administration Fexofenadine HCl 60 mg 08/28/18 11:30 09/01/18 08:08 Debbie PO 09/27/18 11:29 Not Given BID ELSIE Guaifenesin 1,200 mg 08/28/18 11:25 09/01/18 08:08 Mucinex PO 09/27/18 11:24 Not Given Q12 ELSIE Guaifenesin/Codeine Phosphate 5 ml 08/29/18 14:45 08/31/18 23:40 Robitussin-Ac Sugar Free PO 09/28/18 14:44 5 ml Q6H PRN Administration Cough Clindamycin Phosphate 600 mg/ 54 mls @ 100 mls/hr 08/28/18 00:00 09/01/18 08:40 Dextrose IV 09/06/18 15:59 Infused Q8H ELSIE Infusion Insulin Aspart 0 units 08/27/18 17:48 09/01/18 12:09 Novolog Flexpen SC 09/26/18 17:47 Not Given ACHS ELSIE Insulin Glargine 8 units 08/29/18 21:00 08/31/18 21:46 Lantus Solostar Pen SC 09/28/18 20:59 8 units HS ELSIE Administration Lactobacillus Acidophilus 4 tab 08/28/18 12:00 09/01/18 12:10 Floranex PO 09/27/18 11:59 Not Given TIDM ELSIE Menthol 1 ethan 08/29/18 15:37 08/29/18 16:22 Nice BUCCAL 09/28/18 15:36 1 ethan Q1H PRN Administration Cough NPO Date Last Intake of Fluids: 08/31/18 Time Last Intake of Fluids: 19:00 Last Intake of Fluids Comment: Robitussin Date Last Intake of Solids: 08/31/18 Time Last Intake of Solids: 19:00 Past Medical History Medical History Acute bronchitis (Acute) Puncture wound of right foot (Acute) Cellulitis of right foot (Acute) Diabetes Exercise / Class Metabolic Activity II 4-5 Yardwork/Stairs/Walk up hill Past Surgical History Surgical History S/P surgical removal of pilonidal cyst Past Anesthesia History No Hx of Anesthesia Complications and No Family Hx of Anesthesia Complications History of PONV No Hx of PONV and No Hx of Motion Sickness Social History Smoking Status: Never smoker Do You Dip or Chew Tobacco: No Hx Alcohol Use: No Hx Substance Use: No substance use type: does not use Physical Exam Vital Signs Last Vital Signs Temp 98.6 F 09/01/18 13:08 Pulse 87 09/01/18 13:08 Resp 16 09/01/18 13:08 BP 164/95 H 09/01/18 13:08 Pulse Ox 96 09/01/18 13:08 ENMT Mouth: no dentition abnormality Thyromental Distance: > or= 3.5 Finger Breadths Mallampati Class: II Neck normal visual inspection Respiratory normal respiratory effort Auscultation: lungs clear to auscultation bilaterally Cardiovascular Rate/Rhythm: regular rate and regular rhythm
[2018-09-01] MEDS ORDERED: MIDAZOLAM HCL 1 MG/ML 2ML VIAL ONE (13:17)
[2018-09-01] MEDS ORDERED: ONDANSETRON INJ 2 MG/ML 2 ML VIAL IV PRN ×2 (13:17→15:54)
[2018-09-01] MEDS ORDERED: ePHEDrine sulfate 50 MG/ML AMP IV PRN (13:17)
[2018-09-01] MEDS ORDERED: fentaNYL citrate 100 MCG/2 ML VIAL ONE (13:17)
[2018-09-01] MEDS ORDERED: fentaNYL citrate 100 MCG/2 ML VIAL IV PRN (13:17)
[2018-09-01] MEDS ORDERED: ATROPINE SULFATE 0.1 MG/ML 10ML SYR IV PRN (13:17)
--- NOTE | 2018-09-01 13:49 | History & Physical Bridge Note ---
Date of Service September 01, 2018 History & Physical Bridge Note I have examined the patient, reviewed the History & Physical and in the interval since the performance of the History & Physical I have noted the following changes of clinical significance: no changes noted
[2018-09-01] MEDS ORDERED: BACITRACIN INJ 50,000 UNIT VIAL ONE (14:04)
[2018-09-01] MEDS ORDERED: BUPIVACAINE 0.5 % 5 MG/1 ML MPF 30ML VIAL ONE (14:04)
[2018-09-01] MEDS ORDERED: ACETAMINOPHEN 1000 MG/100 ML IV IV PRN (14:14)
[2018-09-01] MEDS ORDERED: LIDOCAINE HCL 2% 2 ML VIAL/AMP(20MG/ML) INFIL ONE (14:47)
[2018-09-01] MEDS ORDERED: ONDANSETRON INJ 2 MG/ML 2 ML VIAL ONE (14:47)
[2018-09-01] MEDS ORDERED: PROPOFOL IV EMULSION 10 MG/ML 20 ML VIAL IV ONE (14:47)
--- NOTE | 2018-09-01 14:50 | Operative Report ---
Post Operative Report Pre & Post Diagnosis Operation Date: 09/01/18 10:10 Pre-Op Diagnosis: Right Foot Cellulitis Post-Op Diagnosis: Right Foot Cellulitis Procedure Operation Date: 09/01/18 10:10 Actual Procedures p Right Foot Incision and Drainage(Right with iodoform packing to small 3 x 3 mm punctate areas plantar foot debridement of a 4 x 6 cm plantar subcutaneous abscess) - Jeremías Young DO Surgeon Jeremías Young DO Laserist None Estimated Blood Loss 5 Findings Consistent with Post-Op Diagnosis Patient presents after having been admitted on Thursday after stepping on a foreign body in his yard while mowing grass presents with a small punctate area over the region of the fourth metatarsal head is a small area approximately 1 cm 3 mm in diameter this is a subcutaneous area of under just under the skin but not deep that was approximately 4 x 6 cm of seropurulent fluid has been on antibiotics and cellulitis is resolved to agree with this area of seropurulent pocket is remained presents for irrigation debridement lavage Specimens Culture aerobic anaerobic Drains Iodoform packing Complications none Disposition Accompanied Patient To Recovery: No Disposition: Recovery Room Indications Patient presents with a persistent area of fluctuance and a subcutaneous collection fluid of the right plantar foot for I&D Description of Procedure After proper prepping draping the right foot the blister on the plantar medial aspect of the foot measuring 4 x 6 cm was lanced and cultures were taken of this was all debrided irrigated lavaged to subcutaneous underneath the superficial layer of skin a. Seropurulent blister results was too small poke areas measuring approximately 3 mm each which were interconnected this was debrided lavaged with 3 L of bacitracin sterile saline solution after thorough irrigation debridement lavage these 2 small areas were packed with quarter inch iodoform gauze sterile compressive dressing was placed the patient was subsequently recovered in stable condition operative dictated by Hector. But no response to conservative management and IV antibiotics and presents for I&D I attest to the content of the Intraoperative Record and any orders documented therein. Any exceptions are noted below.
--- NOTE | 2018-09-01 15:36 | Anesthesiology Progress Note ---
Date of Service September 01, 2018 Anesthesia Post Procedure Vital Signs Vital Signs: Temp Pulse Pulse Resp BP BP Pulse Ox 09/01/18 15:30 80 16 123/86 97 09/01/18 15:20 36.4 C L 80 18 117/70 92 09/01/18 15:10 84 13 109/72 93 09/01/18 15:00 82 14 96/59 L 96 09/01/18 14:51 36.1 C L 74 16 88/54 L 97 09/01/18 13:08 37 C 87 16 164/95 H 96 09/01/18 12:54 36.6 C 87 16 170/95 H 95 09/01/18 07:49 37.1 C 80 20 152/89 H 154/89 H 97 08/31/18 23:54 36.9 C 89 18 142/81 H 94 Pain Intensity Right Foot: Pain Intensity: 2 Transfer of Care Handoff Completed per policy Notes Mental Status: alert / awake / arousable and participated in evaluation Nausea / Vomiting: adequately controlled Pain: adequately controlled Airway Patency, RR, SpO2: stable & adequate BP & HR: stable & adequate Hydration State: stable & adequate Anesthetic Complications: no major complications apparent and Pt Satisfied with anesthetic care
[2018-09-01] MEDS ORDERED: NALOXONE HCL 0.4 MG/1 ML VIAL/CARP IV PRN (15:54)
[2018-09-01] MEDS ORDERED: METOCLOPRAMIDE HCL INJ 5 MG/ML 2 ML VIAL IV PRN (15:54)
[2018-09-01] MEDS ORDERED: BISACODYL 10 MG SUPP PR PRN (15:54)
[2018-09-01] MEDS ORDERED: MAGNESIUM HYDROXIDE SUSP 30 ML UDC PO PRN (15:54)
[2018-09-01] MEDS: SODIUM CHLORIDE 0.9% 1000ML 1,000 ML IV SCH (16:10)
[2018-09-01] MEDS: GUAIFENESIN/CODEINE 100MG/10MG 5ML UDC PO PRN ×2 (16:39→23:37)
--- NOTE | 2018-09-01 19:17 | Hospitalist Progress Note ---
Date of Service September 01, 2018 Assessment & Plan (1) Cellulitis of right foot: Initially started with puncture wound and cellulitis and then formed an abscess in the plantar surface of the forefoot medial to the puncture wound Culture taken from puncture wound with Group B Strep CT right foot on 08/27 (day of admission) w/o deep infection/abscess but now this has formed as above Is now status post I&D by orthopedic surgery on 09/01 He has been afebrile now for 48 hours -New cultures were taken from the wound during the incision and drainage-we will follow -Initially treated with cefepime, clindamycin, and vancomycin-now remains on clindamycin alone for group B strep -Continue clindamycin IV for now will convert to p.o. for discharge Appreciate orthopedic surgery management-will await their recommendations tomorrow to see if he will be stable to return home tomorrow -Will need either wound care clinic follow-up, or his [id number] is an RN who could do home dressing changes with packing changes (2) Puncture wound of right foot: as above in "cellulitis" -was given Adacel booster on 08/28/18 (3) Acute bronchitis: Improved as per patient. Lungs clear on exam -continue combivent, mucinex, brenda BID -continue Incentive spirometry -continue cough syrup with codeine Suspect right lower back pain is a muscular strain from excessive coughing, however advised him to let the nurse know if he has any hematuria or worsening of the pain -Can take guaifenesin with codeine for this (4) Diabetes mellitus: HB a1c 8.9% With hyperglycemia which is now resolved with increased doses of insulin -continue Lantus 8 units qhs -continue Novolog -Will start metformin XR on dc (previously could not paris IR version due to diarrhea) (5) DVT prophylaxis: lovenox 40mg daily Dispo-continued stay, hopeful for discharge in the next 1 to 2 days Subjective Patient recently returned from his foot I&D today. He is feeling well except has pain in his right lower back that hurts much worse with turning or with coughing. He thinks this pain started since returning from the operating room. He has not voided yet but will keep an eye out for hematuria. He has no history of kidney stones. Denies chest pain or shortness of breath. His foot pain is fairly well controlled. He remains afebrile. I discussed the case with orthopedics PA today. Review of Systems Review of Systems: All systems reviewed & are unremarkable except as noted in HPI & below Physical Exam Constitutional: WD/WN, vitals as above Eyes: + anicteric sclerae Neck: trachea midline, no thyromegaly Respiratory: normal respiratory effort, lungs clear to auscultation + cough (Dry cough with deep inspiration) Cardiovascular: Rate/Rhythm: regular rate and regular rhythm Heart Sounds: no murmur Gastrointestinal (Abdomen): normal bowel sounds, soft, nontender, no hepatosplenomegaly Musculoskeletal: Extremities: + extremities abnormal to inspection (Right leg/foot/ankle with bulky dressing and Willi wrap in place-not removed, sensation intact to light touch in the toes), no cyanosis and no clubbing Skin: no rashes, warm and dry (Can no longer see the skin of the right plantar surface of the foot due to dressing being in place) Neurologic: moves all extremities and awake; no focal motor deficits Psychiatric: A+Ox3, euthymic affect Results & Data Vital Signs (Past 12 Hours) Vital Signs Temp Pulse Resp BP BP Pulse Ox 09/01/18 15:30 80 16 123/86 97 09/01/18 15:20 36.4 C L 80 18 117/70 92 09/01/18 15:10 84 13 109/72 93 09/01/18 15:00 82 14 96/59 L 96 09/01/18 14:51 36.1 C L 74 16 88/54 L 97 09/01/18 13:08 37 C 87 16 164/95 H 96 09/01/18 12:54 36.6 C 87 16 170/95 H 95 09/01/18 07:49 37.1 C 80 20 152/89 H 154/89 H 97 Laboratory Results 09/01/18 09/01/18 09/01/18 Range/Units 16:42 14:59 13:01 WBC (4.8-10.8) K/uL RBC (4.7-6.1) M/uL Hgb (14.0-18.0) g/dL Hct (42-52) % MCV (80-100) fL MCH (25-34) pg MCHC (32-36) g/dL RDW Std Deviation (36.4-46.3) fL RDW Coeff of Lisandro (11.5-14.5) % Plt Count (130-400) K/uL MPV (7.4-10.4) fL Immature Gran % (Auto) % Neut % (Auto) % Lymph % (Auto) % [facility] % (Auto) % Eos % (Auto) % Baso % (Auto) % Immature Gran # (Auto) (0.00-0.02) K/uL Neut # (Auto) (1.4-6.5) K/uL Lymph # (Auto) (1.2-3.4) K/uL [facility] # (Auto) (0.11-0.59) K/uL Eos # (Auto) (0-0.5) K/uL Baso # (Auto) (0-0.2) K/uL Sodium (136-145) mmol/L Potassium (3.5-5.1) mmol/L Chloride (98-107) mmol/L Carbon Dioxide (21-32) mmol/L Anion Gap (3-11) BUN (7-18) mg/dl Creatinine (0.6-1.4) mg/dl Est Cr Clr Drug Dosing ml/min Est GFR ( Amer) Est GFR (Non-Af Amer) BUN/Creatinine Ratio (10-20) Glucose (70-99) mg/dl POC Glucose 113 H 108 H 119 H (70-99) Calcium (8.5-10.1) mg/dl 09/01/18 09/01/18 09/01/18 Range/Units 11:56 06:14 05:43 WBC (4.8-10.8) K/uL RBC (4.7-6.1) M/uL Hgb (14.0-18.0) g/dL Hct (42-52) % MCV (80-100) fL MCH (25-34) pg MCHC (32-36) g/dL RDW Std Deviation (36.4-46.3) fL RDW Coeff of Lisandro (11.5-14.5) % Plt Count (130-400) K/uL MPV (7.4-10.4) fL Immature Gran % (Auto) % Neut % (Auto) % Lymph % (Auto) % [facility] % (Auto) % Eos % (Auto) % Baso % (Auto) % Immature Gran # (Auto) (0.00-0.02) K/uL Neut # (Auto) (1.4-6.5) K/uL Lymph # (Auto) (1.2-3.4) K/uL [facility] # (Auto) (0.11-0.59) K/uL Eos # (Auto) (0-0.5) K/uL Baso # (Auto) (0-0.2) K/uL Sodium 137 (136-145) mmol/L Potassium 4.0 (3.5-5.1) mmol/L Chloride 102 (98-107) mmol/L Carbon Dioxide 30 (21-32) mmol/L Anion Gap 5.0 (3-11) BUN 17 (7-18) mg/dl Creatinine 0.97 (0.6-1.4) mg/dl Est Cr Clr Drug Dosing 111.8 ml/min Est GFR ( Amer) 105.1 Est GFR (Non-Af Amer) 90.7 BUN/Creatinine Ratio 17.5 (10-20) Glucose 150 H (70-99) mg/dl POC Glucose 116 H 134 H (70-99) Calcium 9.0 (8.5-10.1) mg/dl 09/01/18 09/01/18 08/31/18 Range/Units 05:43 00:42 20:12 WBC 7.94 (4.8-10.8) K/uL RBC 4.04 L (4.7-6.1) M/uL Hgb 12.4 L (14.0-18.0) g/dL Hct 36.5 L (42-52) % MCV 90.3 (80-100) fL MCH 30.7 (25-34) pg MCHC 34.0 (32-36) g/dL RDW Std Deviation 43.0 (36.4-46.3) fL RDW Coeff of Lisandro 13.0 (11.5-14.5) % Plt Count 327 (130-400) K/uL MPV 9.2 (7.4-10.4) fL Immature Gran % (Auto) 0.5 % Neut % (Auto) 58.9 % Lymph % (Auto) 23.6 % [facility] % (Auto) 13.7 % Eos % (Auto) 3.0 % Baso % (Auto) 0.3 % Immature Gran # (Auto) 0.04 H (0.00-0.02) K/uL Neut # (Auto) 4.68 (1.4-6.5) K/uL Lymph # (Auto) 1.87 (1.2-3.4) K/uL [facility] # (Auto) 1.09 H (0.11-0.59) K/uL Eos # (Auto) 0.24 (0-0.5) K/uL Baso # (Auto) 0.02 (0-0.2) K/uL Sodium (136-145) mmol/L Potassium (3.5-5.1) mmol/L Chloride (98-107) mmol/L Carbon Dioxide (21-32) mmol/L Anion Gap (3-11) BUN (7-18) mg/dl Creatinine (0.6-1.4) mg/dl Est Cr Clr Drug Dosing ml/min Est GFR ( Amer) Est GFR (Non-Af Amer) BUN/Creatinine Ratio (10-20) Glucose (70-99) mg/dl POC Glucose 157 H 120 H (70-99) Calcium (8.5-10.1) mg/dl (1) Puncture wound of right foot Encounter type: subsequent encounter Qualified Code(s): S91.331D - Puncture wound without foreign body, right foot, subsequent encounter (2) Acute bronchitis Bronchitis organism: unspecified organism Qualified Code(s): J20.9 - Acute bronchitis, unspecified (3) Diabetes mellitus Diabetes mellitus type: type 2 Diabetes mellitus termite renewal inspector insulin use: without termite renewal inspector use Diabetes mellitus complication status: without com plication Qualified Code(s): E11.9 - Type 2 diabetes mellitus without complications
[2018-09-01] MEDS ORDERED: SENNA 8.6 MG TAB PO SCH (21:00)
[2018-09-01] MEDS: INSULIN GLARGINE SOLOSTAR 100 UNITS/ML 3 ML PEN SC SCH (21:07)
[2018-09-01] MEDS: ENOXAPARIN INJ 40 MG/0.4 ML SYR SQ SCH (21:07)
[2018-09-01] MEDS: DOCUSATE SODIUM 100 MG CAP PO SCH (21:08)
[2018-09-02] MEDS: OXYCODONE HCL IR 5 MG TAB (IMMEDIATE RELEASE) PO PRN ×2 (01:26→05:27)
[2018-09-02] MEDS: SODIUM CHLORIDE 0.9% 1000ML 1,000 ML IV SCH (03:11)
[2018-09-02] MEDS: GUAIFENESIN/CODEINE 100MG/10MG 5ML UDC PO PRN (05:27)
[2018-09-02 05:57] LABS: Basophils # (auto) 0.03 K/uL (0-0.2); Basophils % (auto) 0.3 %; Eosinophils # (auto) 0.22 K/uL (0-0.5); Eosinophils % (auto) 2.4 %; Hematocrit (blood only) 37.6 % (42-52); Hemoglobin 12.9 g/dL (14.0-18.0); Immature Granulocytes # (auto) 0.05 K/uL (0.00-0.02); Immature Granulocytes % (auto) 0.6 %; Lymphocytes # (auto) 2.22 K/uL (1.2-3.4); Lymphocytes % (auto) 24.6 %; Mean Corpuscular Hgb Conc 34.3 g/dL (32-36); Mean Corpuscular Volume 92.2 fL (80-100); Mean Platelet Volume 9.4 fL (7.4-10.4); Monocytes # (auto) 1.16 K/uL (0.11-0.59); Monocytes % (auto) 12.9 %; Neutrophils # (auto) 5.33 K/uL (1.4-6.5); Neutrophils % (auto) 59.2 %; Platelet Count 373 K/uL (130-400); RDW Standard Deviation 43.6 fL (36.4-46.3); Red Blood Count 4.08 M/uL (4.7-6.1); White Blood Count 9.01 K/uL (4.8-10.8)
[2018-09-02 06:29] LABS: BUN Creatinine Ratio 16.8 (10-20); Calcium 8.7 mg/dl (8.5-10.1); Creatinine Clr Calc Pharmacy 112.9 ml/min; Est GFR (African American) 106.4; Est GFR (Non-African American) 91.8; Potassium 4.5 mmol/L (3.5-5.1)
[2018-09-02] MEDS: CLINDAMYCIN 600 MG in DEXTROSE 5% 50 ML IV SCH (08:08)
[2018-09-02] MEDS: DOCUSATE SODIUM 100 MG CAP PO SCH (08:08)
[2018-09-02] MEDS: LACTOBACILLUS ACIDOPHILUS (FLORANEX) TAB PO SCH ×2 (08:08→12:31)
[2018-09-02] MEDS: IPRATROPIUM BROMIDE/ALBUTEROL respimat INH INH SCH ×2 (08:08→12:32)
[2018-09-02] MEDS: FEXOFENADINE 60 MG TAB PO SCH (08:08)
[2018-09-02] MEDS: BENZONATATE 100 MG CAPSULE PO SCH ×2 (08:09→12:31)
[2018-09-02] MEDS: guaiFENesin 600 MG TABCR PO SCH (08:09)
[2018-09-02] MEDS: INSULIN ASPART 100 UNITS/ML 3 ML PEN SC SCH ×2 (08:12→12:33)
[2018-09-02] MEDS ORDERED: MULTIVITAMIN TAB PO SCH (09:00)
--- NOTE | 2018-09-02 10:47 | Anesthesiology Progress Note ---
Date of Service September 02, 2018 Anesthesia Post Procedure Vital Signs Vital Signs: Temp Pulse Resp BP BP Pulse Ox 09/02/18 07:44 36.8 C 79 20 136/87 96 09/01/18 23:00 36.7 C 89 20 141/82 H 95 09/01/18 15:30 80 16 123/86 97 09/01/18 15:20 36.4 C L 80 18 117/70 92 09/01/18 15:10 84 13 109/72 93 09/01/18 15:00 82 14 96/59 L 96 09/01/18 14:51 36.1 C L 74 16 88/54 L 97 09/01/18 13:08 37 C 87 16 164/95 H 96 09/01/18 12:54 36.6 C 87 16 170/95 H 95 Pain Intensity Right Foot: Pain Intensity: 2 Notes Mental Status: alert / awake / arousable and participated in evaluation Nausea / Vomiting: adequately controlled Pain: adequately controlled Airway Patency, RR, SpO2: stable & adequate BP & HR: stable & adequate Hydration State: stable & adequate
--- NOTE | 2018-09-02 11:46 | Orthopedic Progress Note ---
Date of Service September 02, 2018 Assessment & Plan (1) Puncture wound of right foot: Discussed case with Dr. Delarosa. Plan for discharge today. services to pull remainder of packing and to check wound qod. Pt to do dressing change on days HH not scheduled. Follow up with Dr Young in 7-10 days. Subjective POD 1 s/p I&D Right foot. Sitting up in bed. No complaints. Had some pain earlier after being up and around in the room but pain control currently is good. Physical Exam Physical Exam: Dressing changed. All packing removed from medial puncture wound. Pulled 4" of pkg from mid foot puncture wound. Mild erythema noted. No purulence noted. Results & Data Vital Signs (Past 12 Hours) Vital Signs Temp Pulse Resp BP Pulse Ox 09/02/18 07:44 36.8 C 79 20 136/87 96 (1) Puncture wound of right foot Encounter type: subsequent encounter Qualified Code(s): S91.331D - Puncture wound without foreign body, right foot, subsequent encounter
--- NOTE | 2018-09-02 12:16 | Discharge Summary ---
Date of Service September 02, 2018 Admission HPI Per Admitting Provider 52-year-old diabetic male who takes no medications. He developed a productive cough several days ago. He also developed swelling tenderness and erythema of the right foot about 3 days ago and noticed a small puncture wound on the right forefoot lateral plantar surface of the right foot. Purulent fluid is able to be expressed. He has a fever and leukocytosis at this time. He does not appear to be septic however with normal lactic acid level. Chest x-ray is clear. He does symptomatically have acute bronchitis. Glucose is 226 nonfasting. He is admitted for further evaluation and treatment. Intravenous clindamycin for gram-positive and anaerobic coverage has been administered in the ED along with cefepime for gram-negative coverage. Principal Diagnosis Puncture wound, foot cellulitis and abscess Discharge Exam Constitutional WD/WN, vitals as above Eyes + anicteric sclerae ENMT external ear and nose normal, oropharynx normal Neck trachea midline, no thyromegaly Respiratory normal respiratory effort, lungs clear to auscultation + cough (Dry cough with deep inspiration) Cardiovascular Rate/Rhythm: regular rate and regular rhythm Heart Sounds: no murmur Extremities: no edema Gastrointestinal (Abdomen) normal bowel sounds, soft, nontender, no hepatosplenomegaly Musculoskeletal Extremities: + extremities abnormal to inspection (Right leg/foot/ankle with bulky dressing and Willi wrap in place-not removed), no cyanosis and no clubbing Skin no rashes, warm and dry (Can no longer see the skin of the right plantar surface of the foot due to dressing being in place) Neurologic moves all extremities and awake; no focal motor deficits Psychiatric A+Ox3, euthymic affect Discharge Data Allergies Allergy/AdvReac Type Severity Reaction Status Date / Time Penicillins Allergy Intermediate RASH, SOB Verified 08/27/18 12:51 Consultations 08/27/18 15:27 ED Decision to Admit Stat 08/28/18 11:25 Consult Orthopedic Surgery Routine 09/01/18 15:54 Consult Case Management - Discharge Planning Routine Procedures Performed Operation Date: 09/01/18 10:10 Actual Procedures p Right Foot Incision and Drainage(Right) - Jeremías Young DO Ordered Studies 08/27/18 17:48 CT foot RT wo con Routine Chest x-ray Foot x-ray Hospital Course (1) Cellulitis of right foot: Initially started with puncture wound and cellulitis and then formed an abscess in the plantar surface of the forefoot medial to the puncture wound Culture taken from puncture wound with Group B Strep CT right foot on 08/27 (day of admission) w/o deep infection/abscess but now this has formed as above Is now status post I&D by orthopedic surgery on 09/01 and doing much better on postop day #1 Packing from puncture wound was removed on the day of discharge, packing in the other surgical incision was left in place for discharge. Bulky dressing was reapplied. He has been afebrile now for 72 hours -New cultures were taken from the wound during the incision and drainage-we will follow after discharge but likely to be group B strep again -Initially treated with cefepime, clindamycin, and vancomycin-now remains on clindamycin alone for group B strep -Continue clindamycin IV for now will convert to p.o. for discharge 300 mg p.o. 3 times daily x7 more days Appreciate orthopedic surgery management-plan to have home nurse remove packing on 09/03 and then to continue daily dressing changes after that Follow-up with orthopedic surgeon in 1 week Right lower extremity with heel weightbearing only, prescription given for walker and knee scooter Pain control with guaifenesin with codeine which is also for his cough as below (2) Puncture wound of right foot: as above in "cellulitis" -was given Adacel booster on 08/28/18 (3) Acute bronchitis: Improved, lungs remain clear, but continues to have dry cough with deep inspiration -continue combivent, guaifenesin with codeine as needed Suspect right lower back pain is a muscular strain from excessive coughing; he has no evidence of hematuria or other signs of nephrolithiasis -Can take guaifenesin with codeine for this pain as well (4) Diabetes mellitus: Hemoglobin A1c here is 8.9% With hyperglycemia initially which is now resolved with increased doses of insulin given while admitted -Will start metformin XR 1000 mill grams daily on dc (previously could not paris IR version due to diarrhea)-follow-up with PCP (5) DVT prophylaxis: Lovenox 40mg SQ daily was provided Dispo-stable for discharge to home with home health Total Time Total Time Spent Total Time Spent (In Minutes): Greater than 30 minutes Total Time Includes: Examination of the Patient, Discharge Planning, Medication Reconciliation and Communication With Other Providers (Orthopedics PA) Discharge Plan Discharge Items Patient Disposition: Home - Home Health Services Reason For Visit: PUNCTURE WOUND RIGHT FOOT, CELLULITIS Discharge Diagnosis: Puncture wound right foot, Diabetic foot wound,cellulitis and abscess Condition: Good Discharge Goals: Decrease discomfort, Diagnostic testing, Improve disease control, Learn about illness and Therapeutic intervention Activity: As commented below Lifting: Gradually increase as tolerated Bathing: Keep incision dry Driving/Machine Use Comment: No driving Non-emergency contact: Primary Care Provider and Surgeon Call non-emergency contact if: you have any medication questions, your symptoms worsen, your pain is not controlled, your pain is worsening, your pain is unusual for you, your pain is concerning for you, you have a fever and your temperature is above 101 Follow-up/Referrals: Brooks Smith, [Primary Care Provider] - 09/07/18 9:00 am (A follow up appointment has been made with your Primary Care Physician, Dr. Smith, on ThursdaySeptember 07 at 9:00am. If you have any questions or need to reschedule, please call the office at [phone].) Jeremías Young, [Surgeon] - Diet: Carb Consistent or DM2 Addtl Provider Instructions: Please finish out the course of antibiotics as prescribed. Weightbearing on the right heel only. Use crutches/knee scooter as needed. Home Health services to pull remainder of packing on 09/03/18 and do dressing changes every other day. Patient to do dressing changes on days when Home Health not scheduled. Ok to shower with waterproof covering over dressing. Call if you notice increased pain, swelling, redness of the wound, increased drainage, or temp [address] or [address] Follow up with Dr Young in 7-10 days. Call for an appointment. [phone] As for your diabetes, he will be started on a new medication called metformin XR which is an extended release version of metformin that is less likely to give you loose stools. You also be given guaifenesin with codeine for your cough and this will also help with any pain in your foot. Please follow-up with your primary care physician within 1 to 2 weeks after discharge. Prescriptions: New diphenhydramine HCl [Benadryl] 25 mg Capsule 25 mg PO Q4 PRN (Reason: itch) Qty: 30 RF: 0 Combivent Respimat 20-100 mcg/actuation Mist 1 puff inhalation QID Qty: 4 RF: 0 codeine-guaifenesin [Cheratussin AC] 10-100 mg/5 mL Liquid 5 - 10 ml PO Q6H PRN (Reason: cough) Qty: 120 RF: 0 clindamycin HCl 300 mg capsule 300 mg PO Q8H 7 Days Qty: 21 RF: 0 metformin 1,000 mg tablet extended release 24hr 1,000 mg PO DAILY Qty: 30 RF: 0 Continued acetaminophen [Acetaminophen Extra Strength] 500 mg Tablet 500 mg PO Q6H PRN (Reason: Pain) RF: 0 Discontinued guaifenesin 1,200 mg Tablet Extended Release 12hr 1,200 mg PO Q12H PRN (Reason: Cough) RF: 0 Stand-Alone Forms: [facility] [place] Discharge Orders: Discharge Order (Routine); Ordered 09/02/18 Ordered By: Yenny Delarosa Admission Data Admit Date/Time: 08/27/18 16:23 Attending Provider: Yenny Delarosa Admit Provider: Bhavik Serrano Primary Care Provider: Brooks Smith Other Providers: Bhavik Serrano ; Lg Esquivel Service: Medical Other Pending Studies at Discharge: Yes Studies:: Final wound culture from surgery
== END 2018-09-02 14:29 | disposition home health service (06) ==
LOC: ED 11:25 → SUATTDRO 16:23 → 4E 16:23

== ENCOUNTER 2021-05-16 19:05 | Inpatient (IN) ==
--- NOTE | 2021-05-16 19:59 | XRay Report ---
SINGLE VIEW CHEST CLINICAL HISTORY: Cough and fever FINDINGS: An AP, portable, upright chest radiograph is compared to study dated 08/27/2018. The cardiom ediastinal silhouette is unremarkable. Multifocal patchy airspace consolidation is typical for pneumo wilder. No large pleural effusion or pneumothorax is seen. The bony thorax is grossly intact. IMPRESSION: Multifocal airspace consolidation is typical for pneumonia. Clinical correlation will be required and radiographic follow-up to resolution is recommended. ACT 112: Negative or not required by law. Electronically signed by: Víctor Brian M.D. 05/16/2021 7:58 PM
[2021-05-16] MEDS ORDERED: DEXAMETHASONE SOD INJ 4 MG/ML VIAL IV STA (20:18)
[2021-05-16 20:55] LABS: Mean Corpuscular Hgb Conc 33.2 g/dL (32-36); Mean Platelet Volume 10.6 fL (7.4-10.4); Platelet Count 146 K/uL (130-400)
[2021-05-16 21:07] LABS: Partial Thromboplastin Ratio 1.3; Partial Thromboplastin Time 33.7 Seconds (21.0-31.0); Prothrombin Time 10.2 Seconds (9.0-12.0)
[2021-05-16 21:11] LABS: Basophils # (auto) 0.01 K/uL (0-0.2); Basophils % (auto) 0.3 %; Eosinophils # (auto) 0.01 K/uL (0-0.5); Eosinophils % (auto) 0.3 %; Hematocrit (blood only) 42.8 % (42-52); Hemoglobin 14.2 g/dL (14.0-18.0); Lymphocytes # (auto) 0.47 K/uL (1.2-3.4); Lymphocytes % (auto) 13.8 %; Mean Corpuscular Hemoglobin 31.8 pg (25-34); Mean Corpuscular Volume 95.7 fL (80-100); Monocytes # (auto) 0.65 K/uL (0.11-0.59); Monocytes % (auto) 19.1 %; Neutrophils # (auto) 2.26 K/uL (1.4-6.5); Neutrophils % (auto) 66.5 %; RDW Coefficient of Variation 13.5 % (11.5-14.5); Red Blood Count 4.47 M/uL (4.7-6.1)
[2021-05-16 21:15] LABS: Albumin Globulin Ratio 1.3 (0.9-2); BUN Creatinine Ratio 24.8 (10-20); Bilirubin,Total 0.5 mg/dl (0.2-1.0); Calcium 8.4 mg/dl (8.5-10.1); Creatinine Clr Calc Pharmacy 86.7 ml/min; Est GFR (African American) 93.5 ml/min; Est GFR (Non-African American) 80.7 ml/min; Globulin 3.2 gm/dl (2.5-4.0); Magnesium 1.8 mg/dl (1.7-2.4); Potassium 4.4 mmol/L (3.5-5.1); Total Protein 7.2 gm/dl (6.0-8.3)
[2021-05-16] MEDS ORDERED: SODIUM CHLORIDE 0.9% 500 ML IV ONE (21:26)
[2021-05-16] MEDS ORDERED: SODIUM CHLORIDE 0.9% 500 ML IV SCH (21:30)
--- NOTE | 2021-05-16 22:42 | History & Physical Report ---
Date of Service May 16, 2021 Assessment & Plan (1) Acute respiratory failure with hypoxia: Plan: 55 yo M Hx sarcoidosis, DM2 admitted for acute hypoxic respiratory failure secondary to COVID-19 pneumonia. Acute hypoxic respiratory failure, COVID-19: Presented with hypoxia with complaints of SOB and fevers at home. Saturating well on 2LNC at this time. Wean oxygen as tolerated. CXR with multifocal pneumonia. COVID-19 testing positive. Remdesivir x5 days. Decadron 6mg daily x10 days. Advised vaccination for COVID-19 in the future in the outpatient setting. DM2: History of, on metformin in outpatient setting. Hold this in favor of basal/bolus insulin. Continue lisinopril. Code Status: FULL CODE FEN: DM2 diet DVT ppx: Lovenox daily Dispo: Med/Surg (2) COVID-19: (3) Diabetes mellitus: History of Present Illness Chief Complaint: fever, SOB Primary Care Provider: Brooks Smith, 55 yo M Hx DM2, sarcoidosis presents for 6 days of illness including fevers, chills, and URI symptoms. Patient admits to not being vaccinated due to his history of ADR from influenza vaccine "flaring his sarcoidosis". Did a home test for COVID-19 on Thursday which was positive. Today he continued to have high fevers and started having shortness of breath with exertion prompting his ER visit. In the ER he was noted to be hypoxic to 87% on room air, improved to 96% on 2LNC. Noted to be leukopenic, mild transaminitis. CXR revealed multifocal pneumonia. Allergies Allergy/AdvReac Type Severity Reaction Status Date / Time Influenza Virus Vaccines Allergy Severe SARCOIDOSIS Verified 05/16/21 20:28 REACTION Penicillins Allergy Intermediate RASH, SOB Verified 05/16/21 20:28 Home Medications Medication Instructions Recorded Confirmed Type blood sugar diagnostic ([place] #100 ea 05/22/20 05/16/21 Rx Ultra Blue Test Strip) multivitamin 1 tab PO QPM 06/08/20 05/16/21 History lisinopril 2.5 mg tablet 2.5 mg PO DAILY #90 tab 01/10/21 05/16/21 Rx metformin 500 mg 24 hr 1,000 mg PO QPM #180 tab 01/10/21 05/16/21 Rx tablet,extended release hydroxyzine HCl 25 mg tablet 25 - 50 mg PO HS PRN 05/16/21 05/16/21 History Past Med/Surg History Medical History (Updated 05/17/21 @ 13:10 by Jayleen Staples DO) Arthritis Diabetes mellitus, type 2 Hx of colonic polyp Hx of sleep apnea NO DEVICE Peripheral neuropathy Sarcoidosis EFFECTING LUNGS Wound of foot RT (OLD PUNCTURE WOUND NOT HEALING>FOLLOWING WITH WOUND CLINIC) Surgical History H/O abdominal surgery ABDOMINAL POLYPS REMOVED AT AGE 7 History of bronchoscopy History of colonoscopy History of ear surgery POLYPS REMOVED A CHILD S/P foot surgery, right I&D (PUNCTURE WOUND) S/P surgical removal of pilonidal cyst Family History Mother Ovarian cancer Melanoma Breast cancer Family history of diabetes mellitus Grandfather (Maternal) Colon cancer Brother Bone cancer Non-Hodgkin lymphoma Father Family history of diabetes mellitus Other No family history of adverse response to anesthesia Denies family history of Prostate cancer Myocardial infarction Social History Smoking Status: Never smoker Second Hand Exposure: Yes ( A CHILD); Hx Alcohol Use: No Hx Substance Use: No Preferred Language: Jordanian Communication Ability: Effective Visual Impairment: No Limitations Hearing Ability: Normal 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 Beliefs That Will Affect Care: None marital status: Current Living Situation: Family current occupational status: employed current occupation: general farmworker at [employer] How many Children do You have: 2 Feels Safe at Home: Yes Safety Concerns: Feels Safe At This Time Childhood Exposure to Second-Hand Smoke: No caffeine: Yes during the past year weight has: remained stable Dental Care, Regularly: No Physical Activity Frequency: Does not Exercise Seatbelt Use: always Sunscreen Use: No Assistive Devices: None Review of Systems Review of Systems: All systems reviewed & are unremarkable except as noted in HPI & below Constitutional: + fever, + chills and + malaise Respiratory: + cough and + dyspnea Cardiovascular: no chest pain, no palpitations and no edema Gastrointestinal: no abdominal pain, no constipation and no diarrhea/loose stools Physical Exam Constitutional: WD/WN, vitals as above Eyes: PERRL, conjunctivae normal, anicteric sclerae ENMT: external ear and nose normal, oropharynx normal Neck: normal visual inspection Respiratory: normal respiratory effort, lungs clear to auscultation Cardiovascular: regular rhythm, tachycardic, no murmurs, no peripheral edema Gastrointestinal (Abdomen): normal bowel sounds, soft, nontender, no hepatosplenomegaly Musculoskeletal: no cyanosis or clubbing, extremities motor strength 5/5 Skin: no rashes, warm and dry Neurologic: Normal speech. Bilateral UE, LE, and face without sensory or motor deficits. Psychiatric: A+Ox3, euthymic affect Results & Data Results & Data ([facility]) Vital Signs (Past 12 Hours) Vital Signs Temp Pulse Pulse Resp BP BP Pulse Ox 05/16/21 22:31 93 H 16 124/81 96 05/16/21 20:45 96 H 20 142/91 H 95 05/16/21 20:29 95 05/16/21 20:21 87 L 05/16/21 19:09 37.3 C 104 H 18 103/69 92 Code Status & VTE Plan VTE Prophylaxis Plan VTE Prophylaxis will be ordered: Yes Supervising Physician Co-Signing Physician Notes Attending addendum: I have physically seen this patient, have supervised the medical residents activities, and agree with the H&P unless as otherwise noted. Assessment and Plan: Acute respiratory failure with hypoxia/COVID-19 pneumonia- Chest x-ray suggestive of multifocal pneumonia Dexamethasone 6 mg IV daily Remdesivir IV per protocol Guaifenesin extended release 1200 mg p.o. twice daily Vitamin D 5000 international units p.o. daily Zinc sulfate 220 mg p.o. daily Albuterol HFA 2 puffs every 2 hours as needed Diabetes mellitus- Hold Metformin Placed on sliding scale Follow increased blood sugar closely while on dexamethasone Remaining orders and notations as noted Resident Activity Tracking Resident Involvement: Resident Care Provided Care Provided: Adult Hospital Medicine (1) Diabetes mellitus Diabetes mellitus complication status: without complication Diabetes mellitus termite technician insulin use: without termite technician use Diabetes mellitus type: type 2 Qualified Code(s): E11.9 - Type 2 diabetes mellitus without complications
[2021-05-16] MEDS ORDERED: REMDESIVIR 200 MG in SODIUM CHLORIDE 0.9% 210 ML IV STA (23:19)
[2021-05-17] MEDS ORDERED: ONDANSETRON INJ 2 MG/ML 2 ML VIAL IV PRN (00:47)
[2021-05-17] MEDS ORDERED: ACETAMINOPHEN 325 MG TAB PO PRN (00:47)
[2021-05-17] MEDS ORDERED: CARBOHYDRATES FOR HYPOGLYCEMIA PO PRN (00:47)
[2021-05-17] MEDS ORDERED: DEXTROSE 50% 50 ML SYRINGE IV PRN (00:47)
[2021-05-17] MEDS ORDERED: ENOXAPARIN INJ 40 MG/0.4 ML SYR SQ SCH (00:47)
[2021-05-17] MEDS ORDERED: hydrOXYzine HCl 25 MG TAB PO PRN (00:47)
[2021-05-17] MEDS ORDERED: POLYETHYLENE (MIRALAX) 17 GM PACK PO PRN (00:47)
[2021-05-17] MEDS ORDERED: GLUCOSE 10 TABS/TUBE PO PRN (00:47)
[2021-05-17] MEDS ORDERED: GLUCOSE 40% GEL 15 GM TUBE PO PRN (00:47)
[2021-05-17] MEDS ORDERED: GLUCAGON FOR INJ 1 MG VIAL SQ PRN (00:47)
--- NOTE | 2021-05-17 02:58 | Emergency Department Note ---
Impression & Plan Hypoxia, Pneumonia, COVID-[address] [facility] ED Provider Note NAME: JOHANA UMAÑA AGE: 55 SEX: M ARRIVES VIA: Walk-In INFORMANT: Patient ED PROVIDER(S): Jayleen Staples DO CHIEF COMPLAINT: Shortness of breath PLAN: Disposition: Admit to the [facility] Condition: Stable MEDICAL DECISION MAKING: This is a 55-year-old male patient who presents to the emergency department with shortness of breath, headache, fever and body aches. The patient was diagnosed with COVID-19 4 days ago. He is unvaccinated. He presents to the emergency department tonight because he has increasing cough and shortness of breath. Upon presentation to the ER, the patient had borderline O2 saturations. During my evaluation, the patient's O2 saturations dropped to 87% on room air and he became more tachypneic. Some supplemental oxygen. Chest x-ray shows evidence of bilateral pulmonary opacities consistent with Covid pneumonia. He has a history of sarcoidosis and diabetes. Patient was given IV Decadron and will be admitted into the hospital. I discussed the case with the [place] Hospitalist and they will evaluate for further management. Triage Nursing notes reviewed and agree with them. Vital Signs: reviewed and remarkable for hypoxia and hypotension Differential diagnosis: Covid pneumonia; pulmonary embolus; hypoxia ER treatment provided: Supplemental oxygen IV fluids IV Decadron Diagnostics interpreted by me: ECG: Normal sinus rhythm at a rate of [address] segment elevation or signs of ischemia. There is no ectopy. Normal QTC. Cardiac Monitoring: Normal sinus rhythm at 85 Laboratory studies: See below Imaging studies: As per my interpretation Chest x-ray: Bilateral pulmonary opacities consistent with pneumonia HPI: 55/M arrives for evaluation of shortness of breath and cough. The patient was diagnosed 4-5 days ago with COVID-19. Since that time, the patient has had increasing shortness of breath, fever and headaches. Patient has developed a rash about his arms and groin area. Patient is unvaccinated against COVID-19. He has a cough productive of phlegm. He is lost his sense of taste. He does have a history of diabetes, hypertension and sarcoid. ROS: See above HPI for pertinent positives & negatives. A total of 10 systems reviewed and were otherwise negative. PAST MEDICAL HISTORY:Hypertension, sarcoidosis, diabetes PAST SURGICAL HISTORY:See Below FAMILY HISTORY:See Below SOCIAL HISTORY:The patient works at the [employer]. He does not smoke. HOME MEDICATIONS:See list ALLERGIES:See list VITALS:See Below PHYSICAL EXAMINATION: HEENT: Head - normocephalic and atraumatic. Pupils are equal, round, and reactive to light. Extraocular eye muscles are intact, and sclera are anicteric. Nose - moist nasal mucosa without discharge. Mouth - moist buccal mucosa. Oropharynx is nonerythematous and there is no tonsillar exudate or edema noted. Neck: Supple; no JVD or cervical lymphadenopathy Heart: Regular rate and rhythm. There is a normal S1 and S2 with no murmurs, clicks, or gallops appreciated. Lungs: Manage breath sounds in all lung berkowitz Abdomen: Soft, completely nontender, nondistended, with good bowel sounds. There are no palpable pulsatile masses or hepatosplenomegaly. There is no guarding, rigidity, or rebound noted. Extremities: No evidence of cyanosis, clubbing, or edema. There are easily palpable peripheral pulses. Skin: warm and dry with good turgor and no rashes. ED COURSE: Times/Reassessments: 1952 the patient was evaluated in room C2. I donned complete PPE as the patient was known Covid positive. A complete history and physical was performed. Patient was noted to be hypoxic and was placed on supplemental oxygen. IV lock was initiated and labs were drawn as above. A septic protocol was performed. He was given a dose of IV Decadron. He was bolused with IV normal saline solution. The case was discussed with the [facility] hospitalist and they will evaluate for further management. I have personally spent greater than 30 minutes of critical care time in the direct management of this patient. This includes bedside care, interpretation of diagnostic studies, and testing, discussion with consultants, patient, and family members, and other required patient management activities. This 30 minutes is in excess of all separately billable procedures. Jayleen Staples DO Past Med/Surg History Medical History (Updated 05/17/21 @ 13:10 by Jayleen Staples DO) Arthritis Diabetes mellitus, type 2 Hx of colonic polyp Hx of sleep apnea NO DEVICE Peripheral neuropathy Sarcoidosis EFFECTING LUNGS Wound of foot RT (OLD PUNCTURE WOUND NOT HEALING>FOLLOWING WITH WOUND CLINIC) Surgical History H/O abdominal surgery ABDOMINAL POLYPS REMOVED AT AGE 7 History of bronchoscopy History of colonoscopy History of ear surgery POLYPS REMOVED A CHILD S/P foot surgery, right I&D (PUNCTURE WOUND) S/P surgical removal of pilonidal cyst Family History Mother Ovarian cancer Melanoma Breast cancer Family history of diabetes mellitus Grandfather (Maternal) Colon cancer Brother Bone cancer Non-Hodgkin lymphoma Father Family history of diabetes mellitus Other No family history of adverse response to anesthesia Denies family history of Prostate cancer Myocardial infarction Social History Smoking Status: Never smoker Second Hand Exposure: Yes ( A CHILD); Hx Alcohol Use: No Hx Substance Use: No Preferred Language: Malian Communication Ability: Effective Visual Impairment: No Limitations Hearing Ability: Normal Project Management Analyst Required: No Beliefs That Will Affect Care: None marital status: Current Living Situation: Family current occupational status: employed current occupation: workers compensation legal secretary at [employer] How many Children do You have: 2 Feels Safe at Home: Yes Safety Concerns: Feels Safe At This Time Childhood Exposure to Second-Hand Smoke: No caffeine: Yes during the past year weight has: remained stable Dental Care, Regularly: No Physical Activity Frequency: Does not Exercise Seatbelt Use: always Sunscreen Use: No Assistive Devices: None Allergies Allergies Allergy/AdvReac Type Severity Reaction Status Date / Time Influenza Virus Vaccines Allergy Severe SARCOIDOSIS Verified 05/16/21 20:28 REACTION Penicillins Allergy Intermediate RASH, SOB Verified 05/16/21 20:28 Home Meds Home Medications Medication Instructions Recorded Confirmed multivitamin 1 tab PO QPM 06/08/20 05/16/21 hydroxyzine HCl 25 mg tablet 25 - 50 mg PO HS PRN 05/16/21 05/16/21 Previous Rx's Medication Instructions Recorded blood sugar diagnostic (OneTouch #100 ea 05/22/20 Ultra Blue Test Strip) lisinopril 2.5 mg tablet 2.5 mg PO DAILY #90 tab 01/10/21 metformin 500 mg 24 hr 1,000 mg PO QPM #180 tab 01/10/21 tablet,extended release Results & Data (ED) Vital Signs Vital Signs - 24 hr 05/16/21 19:09 05/16/21 20:21 05/16/21 20:29 Temperature 37.3 C Temperature Source Temporal Artery Scan Pulse Rate 104 H Pulse Rate [Right Finger] Respiratory Rate 18 Respiratory Effort / Characteristics Non-Labored Respiratory Depth Normal Blood Pressure 103/69 Blood Pressure [Right Arm] Blood Pressure Mean 80 Blood Pressure Mean [Right Arm] Pulse Oximetry 92 87 L 95 Oxygen Delivery Method Room Air Room Air Nasal Cannula Oxygen Flow Rate 2 Sepsis Recent Fever Within 48 Hours Yes Sepsis New/Unexplained Change in Mental Status N/A Sepsis Action Taken by Nursing No Action Required 05/16/21 20:45 05/16/21 22:31 Temperature Temperature Source Pulse Rate Pulse Rate [Right Finger] 96 H 93 H Respiratory Rate 20 16 Respiratory Effort / Characteristics Respiratory Depth Blood Pressure Blood Pressure [Right Arm] 142/91 H 124/81 Blood Pressure Mean Blood Pressure Mean [Right Arm] 108 95 Pulse Oximetry 95 96 Oxygen Delivery Method Nasal Cannula Nasal Cannula Oxygen Flow Rate 2 2 Sepsis Recent Fever Within 48 Hours Sepsis New/Unexplained Change in Mental Status Sepsis Action Taken by Nursing Laboratory Data Result diagrams: 05/17/21 06:20 05/17/21 06:20 Lab Results 05/16/21 05/16/21 05/16/21 Range/Units 20:43 20:43 20:43 WBC 3.40 L (4.8-10.8) K/uL RBC 4.47 L (4.7-6.1) M/uL Hgb 14.2 (14.0-18.0) g/dL Hct 42.8 (42-52) % MCV 95.7 (80-100) fL MCH 31.8 (25-34) pg MCHC 33.2 (32-36) g/dL RDW Std Deviation 48.0 H (36.4-46.3) fL RDW Coeff of Lisandro 13.5 (11.5-14.5) % Plt Count 146 (130-400) K/uL MPV 10.6 H (7.4-10.4) fL Immature Gran % (Auto) 0.0 % Neut % (Auto) 66.5 % Lymph % (Auto) 13.8 % Dickens % (Auto) 19.1 % Eos % (Auto) 0.3 % Baso % (Auto) 0.3 % Neut # (Auto) 2.26 (1.4-6.5) K/uL Lymph # (Auto) 0.47 L (1.2-3.4) K/uL Dickens # (Auto) 0.65 H (0.11-0.59) K/uL Eos # (Auto) 0.01 (0-0.5) K/uL Baso # (Auto) 0.01 (0-0.2) K/uL Immature Gran # (Auto) 0.00 (0.00-0.02) K/uL PT 10.2 (9.0-12.0) Seconds INR 1.0 (0.9-1.1) APTT 33.7 H (21.0-31.0) Seconds PTT Ratio 1.3 Sodium 136 (136-145) mmol/L Potassium 4.4 (3.5-5.1) mmol/L Chloride 103 (98-107) mmol/L Carbon Dioxide 25 (21-32) mmol/L Anion Gap 8 (3-11) BUN 26 H (6-23) mg/dl Creatinine 1.05 (0.6-1.4) mg/dl Est Cr Clr Drug Dosing 86.7 ml/min Est GFR ( Amer) 93.5 ml/min Est GFR (Non-Af Amer) 80.7 ml/min BUN/Creatinine Ratio 24.8 H (10-20) Glucose 107 H (70-99(Fasting)) mg/dl Lactate (0.4-2.0) mmol/L Calcium 8.4 L (8.5-10.1) mg/dl Magnesium 1.8 (1.7-2.4) mg/dl Total Bilirubin 0.5 (0.2-1.0) mg/dl AST 53 H (13-39) U/L ALT 51 (7-52) U/L Alkaline Phosphatase 86 (34-104) U/L Total Protein 7.2 (6.0-8.3) gm/dl Albumin 4.0 (3.4-5.0) gm/dl Globulin 3.2 (2.5-4.0) gm/dl Albumin/Globulin Ratio 1.3 (0.9-2) // Range/Units 20:43 WBC (4.8-10.8) K/uL RBC (4.7-6.1) M/uL Hgb (14.0-18.0) g/dL Hct (42-52) % MCV (80-100) fL MCH (25-34) pg MCHC (32-36) g/dL RDW Std Deviation (36.4-46.3) fL RDW Coeff of Lisandro (11.5-14.5) % Plt Count (130-400) K/uL MPV (7.4-10.4) fL Immature Gran % (Auto) % Neut % (Auto) % Lymph % (Auto) % Dickens % (Auto) % Eos % (Auto) % Baso % (Auto) % Neut # (Auto) (1.4-6.5) K/uL Lymph # (Auto) (1.2-3.4) K/uL Dickens # (Auto) (0.11-0.59) K/uL Eos # (Auto) (0-0.5) K/uL Baso # (Auto) (0-0.2) K/uL Immature Gran # (Auto) (0.00-0.02) K/uL PT (9.0-12.0) Seconds INR (0.9-1.1) APTT (21.0-31.0) Seconds PTT Ratio Sodium (136-145) mmol/L Potassium (3.5-5.1) mmol/L Chloride (98-107) mmol/L Carbon Dioxide (21-32) mmol/L Anion Gap (3-11) BUN (6-23) mg/dl Creatinine (0.6-1.4) mg/dl Est Cr Clr Drug Dosing ml/min Est GFR ( Amer) ml/min Est GFR (Non-Af Amer) ml/min BUN/Creatinine Ratio (10-20) Glucose (70-99(Fasting)) mg/dl Lactate 0.5 (0.4-2.0) mmol/L Calcium (8.5-10.1) mg/dl Magnesium (1.7-2.4) mg/dl Total Bilirubin (0.2-1.0) mg/dl AST (13-39) U/L ALT (7-52) U/L Alkaline Phosphatase (34-104) U/L Total Protein (6.0-8.3) gm/dl Albumin (3.4-5.0) gm/dl Globulin (2.5-4.0) gm/dl Albumin/Globulin Ratio (0.9-2) Administered Medications Acetaminophen (Acetaminophen 325 Mg Tab) 650 mg PO Q4H PRN PRN Reason: pain/fever Stop: 06/16/21 00:46 Last Admin: 05/17/21 02:14 Dose: 650 mg Documented by: [id number] Enoxaparin Sodium (Enoxaparin Inj 40 Mg/0.4 Ml Syr) 40 mg SQ QAM ELSIE Stop: 06/16/21 08:59 Last Admin: 05/17/21 08:24 Dose: 40 mg Documented by: [id number] Dexamethasone 6 mg/ Syringe 1.5 mls @ 1 mls/min IV DAILY ELSIE Stop: 05/27/21 08:59 Last Admin: 05/17/21 08:24 Dose: 1 mls/min Documented by: [id number] Insulin Aspart (Insulin Aspart Per Unit) 0 units SC ACHS ELSIE Stop: 06/16/21 07:29 Last Admin: 05/17/21 12:17 Dose: 4 units Documented by: [id number] Cosigned by: [id number] Admin: 05/17/21 08:34 Dose: 5 units Documented by: [id number] Cosigned by: [id number] Insulin Glargine (Insulin Glargine Solostar 100 Units/Ml 3 Ml Pen) 5 units SC BID ELSIE Stop: 06/16/21 08:59 Last Admin: 05/17/21 08:34 Dose: 5 units Documented by: [id number] Cosigned by: [id number] Lisinopril (Lisinopril 2.5 Mg Tab) 2.5 mg PO DAILY ELSIE Stop: 06/16/21 08:59 Last Admin: 05/17/21 08:24 Dose: 2.5 mg Documented by: [id number] Discontinued Medications Dexamethasone (Dexamethasone Sod Inj 4 Mg/Ml Vial) 10 mg IV NOW STA Stop: 05/16/21 20:19 Last Admin: 05/16/21 20:39 Dose: 10 mg Documented by: [id number] Sodium Chloride (Nss) 500 mls @ 999 mls/hr IV .Q31M ONE Stop: 05/16/21 21:56 Last Infusion: 05/16/21 22:40 Dose: 0 mls/hr Documented by: [id number] Admin: 05/16/21 21:56 Dose: 999 mls/hr Documented by: [id number] Sodium Chloride (Nss) 500 mls @ 125 mls/hr IV .Q4H ELSIE Stop: 06/15/21 21:29 Last Infusion: 05/17/21 02:17 Dose: 0 mls/hr Documented by: [id number] Admin: 05/16/21 22:40 Dose: 125 mls/hr Documented by: [id number] Remdesivir 200 mg/ Sodium (Chloride) 250 mls @ 125 mls/hr IV ONE STA; Protocol Stop: 05/17/21 01:18 Last Infusion: 05/17/21 02:16 Dose: 0 mls/hr Documented by: [id number] Admin: 05/16/21 23:55 Dose: 125 mls/hr Documented by: [id number] Imaging Data Radiologist's Impression: Chest X-Ray 05/16/21 19:15 SINGLE VIEW CHEST CLINICAL HISTORY: Cough and fever FINDINGS: An AP, portable, upright chest radiograph is compared to study dated 08/27/2018. The cardiomediastinal silhouette is unremarkable. Multifocal patchy airspace consolidation is typical for pneumonia. No large pleural effusion or pneumothorax is seen. The bony thorax is grossly intact. IMPRESSION: Multifocal airspace consolidation is typical for pneumonia. Clinical correlation will be required and radiographic follow-up to resolution is recommended. ACT 112: Negative or not required by law. Electronically signed by: Víctor Brian M.D. 05/16/2021 7:58 PM Discharge Plan Visit Data Chief Complaint: Fever Stated Complaint: COVID SYMPTOMS NOT IMPROVING, SOB, FEVER, NAUSEA ED Provider: Jayleen Staples Discharge Problem: Hypoxia, Pneumonia, COVID-19 Patient Disposition: Admitted As Inpatient Discharge Instructions Interventions: ED Discharge Assessment Last Done: 05/17/21 00:37 Discharge Problem: Pneumonia Qualifiers: Pneumonia type: due to unspecified organism Laterality: bilateral Lung location: unspecified part of lung Qualified Code(s): J18.9 - Pneumonia, unspecified organism
[2021-05-17 07:19] LABS: Hematocrit (blood only) 42.2 % (42-52); Hemoglobin 13.8 g/dL (14.0-18.0); Lymphocytes # (auto) 0.32 K/uL (1.2-3.4); Mean Corpuscular Hemoglobin 31.4 pg (25-34); Mean Corpuscular Hgb Conc 32.7 g/dL (32-36); Mean Corpuscular Volume 95.9 fL (80-100); Mean Platelet Volume 10.4 fL (7.4-10.4); Monocytes # (auto) 0.24 K/uL (0.11-0.59); Monocytes % (auto) 12.8 %; Neutrophils # (auto) 1.32 K/uL (1.4-6.5); Neutrophils % (auto) 70.2 %; Platelet Count 143 K/uL (130-400); RDW Coefficient of Variation 13.4 % (11.5-14.5); RDW Standard Deviation 47.5 fL (36.4-46.3); White Blood Count 1.88 K/uL (4.8-10.8)
[2021-05-17 07:37] LABS: Albumin Globulin Ratio 1.3 (0.9-2); Albumin Level 3.7 gm/dl (3.4-5.0); BUN Creatinine Ratio 23.8 (10-20); Bilirubin,Total 0.4 mg/dl (0.2-1.0); Creatinine Clr Calc Pharmacy 90.1 ml/min; Est GFR (Non-African American) 84.5 ml/min; Globulin 2.9 gm/dl (2.5-4.0); Potassium 4.5 mmol/L (3.5-5.1); Total Protein 6.6 gm/dl (6.0-8.3)
[2021-05-17] MEDS: dexAMETHasone 6 MG in SYRINGE 0 ML IV SCH (08:24)
[2021-05-17] MEDS: ENOXAPARIN INJ 40 MG/0.4 ML SYR SQ SCH (08:24)
[2021-05-17] MEDS: lisinopril 2.5 MG TAB PO SCH (08:24)
[2021-05-17] MEDS: INSULIN ASPART PER UNIT SC SCH ×4 (08:34→21:16)
[2021-05-17] MEDS: INSULIN GLARGINE SOLOSTAR 100 UNITS/ML 3 ML PEN SC SCH ×2 (08:34→21:17)
[2021-05-17 08:59] LABS: Appearance Urine Clear (Clear); Bacteria Urine Automated Negative (Negative); Blood Urine Negative (Negative); Color Urine Dark Yellow; Epithelial Cell Urine Auto 0-5 /lpf (0-5); Glucose Urine UA 3+ (Negative); Ketones Urine 2+ (Negative); Leukocyte Esterase Urine Negative (Negative); Nitrite Urine Negative (Negative); Protein Urine 1+ (Negative); RBC Urine Automated 0-4 /hpf (0-4); Specific Gravity Urine 1.031 (1.000-1.030); Urobilinogen Urine Negative (Negative)
[2021-05-17 09:14] LABS: Bilirubin Urine 1+ (Negative)
--- NOTE | 2021-05-17 10:01 | Hospitalist Progress Note ---
Date of Service May 17, 2021 Assessment & Plan (1) Acute respiratory failure with hypoxia: Plan: 55 yo M Hx sarcoidosis, DM2 admitted for acute hypoxic respiratory failure secondary to COVID-19 pneumonia. Unvaccinated. Acute hypoxic respiratory failure, COVID-19: Presented with hypoxia with complaints of SOB and fevers at home that started approximately 9 days ago Saturating well on 2LNC at this time. Maintain oxygen saturation greater than 92%. Respiratory rate 16 CXR with multifocal opacities consistent with COVID-19. Remdesivir initiated on admission (day #2). Slight bump in LFTs but still less than 10 times upper limits of normal -follow daily LFTs while on remdesivir Not sure that there is much benefit to remdesivir as patient symptoms started 9 days ago. Low threshold to discontinue if LFTs continue to rise. Decadron 6mg daily x10 days or until discharged or with significant improvement. (Day #2) (2) COVID-19: Plan: See above (3) Diabetes mellitus: Plan: Hold home dose of Metformin (1000 mg p.o. every afternoon) Placed on Lantus and NovoLog sliding scale insulin Hemoglobin A1c 6.4% Diabetic diet (4) Hx of sleep apnea: Plan: Patient reports previous history of sleep apnea but not currently followed. Currently does not use CPAP or BiPAP No requirements for supplemental oxygen at home Would recommend follow-up with sleep lab on discharge if patient desires At this time patient has lost weight and currently has a BMI of 24.9 kg/m Will defer to outpatient PCP for further management (5) Peripheral neuropathy: Plan: No current complaints Hemoglobin A1c well controlled at 6.4% Continue to follow (6) Sarcoidosis: Plan: No acute flare Patient on dexamethasone 6 mg IV for COVID-19 No outpatient treatment Original diagnosis when patient was 27 years old with surgical biopsy Patient currently does not follow with any campus executive director and has been untreated since original diagnosis (7) DVT prophylaxis: Plan: Enoxaparin 40 mg subcutaneously daily Plan: Disposition: Patient may be able to be discharged home over the weekend. If patient continues to improve between today and tomorrow, check two-step and consider discharge. Admission and Anticipated Discharge Date Admission Date: May 16, 2021 Supervising Physician Co-Signing Physician Notes chart reviewed, case d/w Jacqui Fraga PAC Subjective Attending: Dr. Adriane Patient seen and examined in room 220. Currently on 2 L of supplemental oxygen via nasal cannula. He has no chest pain or tightness. He has occasional cough with no sputum production. No hemoptysis. No fever, chills, sweats, rigors. No other acute complaints at this time. Review of Systems Review of Systems: All systems reviewed & are unremarkable except as noted in Subjective Physical Exam Physical Exam: GENERAL : No acute distress EYES: No icterus, gaze conjugate NOSE: No evidence of epistaxis. Nasal cannula in place and secure MOUTH: No lesions or candidiasis NECK: Supple LUNGS: CTA B/L, no wheezes, rales or rhonchi HEART: Regular, rate controlled ABDOMEN: Soft, NT, ND, BS Present EXTREMITIES: No LE edema, pedal pulses intact NEURO: A&OX3 Results & Data Results & Data ([facility]) Vital Signs (Past 12 Hours) Vital Signs Temp Pulse Resp BP Pulse Ox 05/17/21 07:31 36.8 C 85 16 150/90 H 97 05/17/21 00:49 38.0 C H 88 16 138/57 L 97 05/17/21 00:18 36.6 C 82 18 149/87 H 95 05/16/21 22:31 93 H 16 124/81 96 Critical Care Results & Data Vital Signs (Past 12 Hours) Vital Signs Temp Pulse Resp BP Pulse Ox 05/17/21 07:31 36.8 C 85 16 150/90 H 97 Lab & Micro Results (Past 24 Hours) RBC 4.40 M/uL (4.7-6.1) L 05/17/21 WBC 1.88 K/uL (4.8-10.8) L 05/17/21 Hgb 13.8 g/dL (14.0-18.0) L 05/17/21 Hct 42.2 % (42-52) 05/17/21 MCV 95.9 fL (80-100) 05/17/21 MCH 31.4 pg (25-34) 05/17/21 MCHC 32.7 g/dL (32-36) 05/17/21 RDW Standard Deviation 47.5 fL (36.4-46.3) H 05/17/21 RDW Coefficient of Variation 13.4 % (11.5-14.5) 05/17/21 Plt Count 143 K/uL (130-400) 05/17/21 MPV 10.4 fL (7.4-10.4) 05/17/21 Neutrophils (%) (Auto) 70.2 % 05/17/21 Lymphocytes (%) (Auto) 17.0 % 05/17/21 Monocytes # (Auto) 0.24 K/uL (0.11-0.59) 05/17/21 Eosinophils # (Auto) 0.00 K/uL (0-0.5) 05/17/21 Immature Granulocyte % (Auto) 0.0 % 05/17/21 Neutrophils # (Auto) 1.32 K/uL (1.4-6.5) L 05/17/21 Lymphocytes # (Auto) 0.32 K/uL (1.2-3.4) L 05/17/21 Monocytes # (Auto) 0.24 K/uL (0.11-0.59) 05/17/21 Eosinophils # (Auto) 0.00 K/uL (0-0.5) 05/17/21 Basophils # (Auto) 0.00 K/uL (0-0.2) 05/17/21 Immature Granulocyte # (Auto) 0.00 K/uL (0.00-0.02) 05/17/21 Na 137 mmol/L (136-145) 05/17/21 K 4.5 mmol/L (3.5-5.1) 05/17/21 Cl 104 mmol/L (98-107) 05/17/21 CO2 25 mmol/L (21-32) 05/17/21 Anion Gap 8 (3-11) 05/17/21 BUN 24 mg/dl (6-23) H 05/17/21 Creatinine 1.01 mg/dl (0.6-1.4) 05/17/21 Estimated GFR ( Amer) 98.0 ml/min 05/17/21 Estimated GFR (Non-Af Amer) 84.5 ml/min 05/17/21 BUN/Creatinine Ratio 23.8 (10-20) H 05/17/21 Glu 230 mg/dl (70-99(Fasting)) H 05/17/21 Ca 8.0 mg/dl (8.5-10.1) L 05/17/21 Total Bilirubin 0.4 mg/dl (0.2-1.0) 05/17/21 AST 67 U/L (13-39) H 05/17/21 ALT 70 U/L (7-52) H 05/17/21 Alkaline Phosphatase 89 U/L (34-104) 05/17/21 TP 6.6 gm/dl (6.0-8.3) 05/17/21 Albumin 3.7 gm/dl (3.4-5.0) 05/17/21 Globulin 2.9 gm/dl (2.5-4.0) 05/17/21 Albumin/Globulin Ratio 1.3 (0.9-2) 05/17/21 Mg 1.8 mg/dl (1.7-2.4) 05/16/21 20:43 05/16/21 Calcium Level 8.0 mg/dl (8.5-10.1) L 05/17/21 06:20 05/17/21 Prothromb Time International Ratio 1.0 (0.9-1.1) 05/16/21 20:43 05/16/21 Diagnostic Findings (Past 24 Hours) Chest X-Ray 05/16/21 19:15 SINGLE VIEW CHEST CLINICAL HISTORY: Cough and fever FINDINGS: An AP, portable, upright chest radiograph is compared to study dated 08/27/2018. The cardiomediastinal silhouette is unremarkable. Multifocal patchy airspace consolidation is typical for pneumonia. No large pleural effusion or pneumothorax is seen. The bony thorax is grossly intact. IMPRESSION: Multifocal airspace consolidation is typical for pneumonia. Clinical correlation will be required and radiographic follow-up to resolution is recommended. ACT 112: Negative or not required by law. Electronically signed by: Víctor Brian M.D. 05/16/2021 7:58 PM I & O Totals 24 Hours 05/16/21 05/17/21 05/18/21 06:59 06:59 06:59 Intake Total 1202.083 / 1202.083 480 / 480 Output Total 750 / 750 Balance 1202.083 / 1202.083 -270 / -270 Cumulative 05/16/21 19:05 thru 05/17/21 09:00 Intake Total 1682.083 Output Total 750 Balance 932.083 RT Ventilator Mngmt (Last Documented) Ventilator Ordered Settings Respiratory Rate 16 05/17/21 07:31 Ventilator - PT Measurements Respiratory Rate 16 PG Care Time/CCT Total # of Minutes Spent Total Time Spent with Patient: Total time spent is greater than 50% in coordination of care (as documented) at patient's floor/unit and/or counseling patient: 25 minutes Coding Level of Care Code 83640 Subseq Hosp Care Lvl 2 Diagnoses Acute respiratory failure with hypoxia J96.01 COVID-19 U07.1 Diabetes mellitus E11.9 Diabetes mellitus complication status: without complication Diabetes mellitus buttermaker helper insulin use: without buttermaker helper use Diabetes mellitus type: type 2 Hx of sleep apnea Z86.69 Peripheral neuropathy G62.9 Sarcoidosis D86.9 DVT prophylaxis Z29.9 Time Spent (min) 25 (1) Diabetes mellitus Diabetes mellitus complication status: without complication Diabetes mellitus fdc insulin use: without fdc use Diabetes mellitus type: type 2 Qualified Code(s): E11.9 - Type 2 diabetes mellitus without complications
--- NOTE | 2021-05-17 15:26 | Electrocardiogram Report ---
Test Reason : Blood Pressure : / mmHG Vent. Rate : 096 BPM Atrial Rate : 096 BPM P-R Int : 164 ms QRS Dur : 076 ms QT Int : 332 ms P-R-T Axes : 043 -01 039 degrees QTc Int : 419 ms Normal sinus rhythm Normal ECG When compared with ECG of 03-MAY-2014 19:56, No significant change was found Confirmed by Hira Harmon ([id number]) on 05/17/2021 3:25:44 PM Referred By: REFERRED SELF Confirmed By:Hira Harmon
[2021-05-17] MEDS ORDERED: REMDESIVIR 100 MG in SODIUM CHLORIDE 0.9% 230 ML IV SCH (20:00)
--- NOTE | 2021-05-18 02:25 | Billing Data ---
Date of Service May 18, 2021 Coding Level of Care Code 25440 Initial Inpt Care Lvl 3
[2021-05-18 06:46] LABS: Hematocrit (blood only) 40.7 % (42-52); Hemoglobin 13.8 g/dL (14.0-18.0); Immature Granulocytes # (auto) 0.01 K/uL (0.00-0.02); Immature Granulocytes % (auto) 0.2 %; Lymphocytes # (auto) 0.53 K/uL (1.2-3.4); Lymphocytes % (auto) 11.3 %; Mean Corpuscular Hemoglobin 32.1 pg (25-34); Mean Corpuscular Hgb Conc 33.9 g/dL (32-36); Mean Corpuscular Volume 94.7 fL (80-100); Mean Platelet Volume 10.1 fL (7.4-10.4); Monocytes # (auto) 0.99 K/uL (0.11-0.59); Monocytes % (auto) 21.2 %; Neutrophils # (auto) 3.15 K/uL (1.4-6.5); Neutrophils % (auto) 67.3 %; Platelet Count 174 K/uL (130-400); RDW Coefficient of Variation 13.3 % (11.5-14.5); RDW Standard Deviation 46.2 fL (36.4-46.3); White Blood Count 4.68 K/uL (4.8-10.8)
[2021-05-18 07:05] LABS: Albumin Globulin Ratio 1.4 (0.9-2); Albumin Level 3.7 gm/dl (3.4-5.0); BUN Creatinine Ratio 32.1 (10-20); Bilirubin,Total 0.4 mg/dl (0.2-1.0); Calcium 8.4 mg/dl (8.5-10.1); Est GFR (African American) 117.6 ml/min; Est GFR (Non-African American) 101.5 ml/min; Globulin 2.7 gm/dl (2.5-4.0); Potassium 4.3 mmol/L (3.5-5.1); Total Protein 6.4 gm/dl (6.0-8.3)
[2021-05-18] MEDS: dexAMETHasone 6 MG in SYRINGE 0 ML IV SCH (08:36)
[2021-05-18] MEDS: lisinopril 2.5 MG TAB PO SCH (08:37)
[2021-05-18] MEDS: ENOXAPARIN INJ 40 MG/0.4 ML SYR SQ SCH (08:37)
[2021-05-18] MEDS: INSULIN ASPART PER UNIT SC SCH ×4 (09:09→20:56)
[2021-05-18] MEDS: INSULIN GLARGINE SOLOSTAR 100 UNITS/ML 3 ML PEN SC SCH ×2 (09:10→20:56)
--- NOTE | 2021-05-18 09:51 | Hospitalist Progress Note ---
Date of Service May 18, 2021 Assessment & Plan (1) Acute respiratory failure with hypoxia: Plan: 55 yo M Hx sarcoidosis, DM2 admitted for acute hypoxic respiratory failure secondary to COVID-19 pneumonia. Acute hypoxic respiratory failure, COVID-19: Presented with hypoxia with complaints of SOB and fevers at home. Saturating well on 2LNC at this time. Wean oxygen as tolerated. CXR with multifocal pneumonia. COVID-19 testing positive. Remdesivir 05/16/21 Decadron 6mg daily 05/16/21 Advised vaccination for COVID-19 in the future in the outpatient setting. (2) COVID-19: (3) Diabetes mellitus: Plan: DM2:History of, on metformin in outpatient setting. Hold this in favor of basal/bolus insulin. Continue lisinopril. Plan: Code Status: FULL CODE FEN: DM2 diet DVT ppx: Lovenox daily Dispo: Med/Surg Admission and Anticipated Discharge Date Admission Date: May 16, 2021 Subjective Patient is doing well on low-flow oxygen therapy will attempt to titrate to room air if able to titrate to room air may consider discharge on 05/19/2021 will perform 2 step at that point in time. This would shorten his remdesivir treatment but if he is able to return to room air likely would not need to comp lete the required 5 doses Review of Systems Review of Systems: Moderate distress and fatigue no headache, no visual changes no speech or swallowing issues no chest pain, pressure or palpitations Continue shortness of breath, nonproductive cough or wheezes no abdominal pain, nausea or vomiting, no diarrhea no dysuria, hematuria or frequency no focal joint pain or swelling no back pain, CVA tenderness or radicular pain no bruising, bleeding or rashes no focal signs of weakness or numbness or altered sensation no complaints of anxiety or depression.. Physical Exam Physical Exam: The patient appeared mild to moderate respiratory distress Vital signs as documented. Head exam is normocephalic atraumatic Neck is without JVD, thyromegaly, or carotid bruits. Lungs are coarse bilaterally in all lung berkowitz tachypnea Cardiac exam, Rhythm is regular.. No murmurs, rubs or gallops. Abdominal exam reveals normal bowel sounds, soft non tender, no masses Extremities are nonedematous and both pedal pulses are present Neurologic exam is alert and oriented, no focal loss of strength or sensation Skin is without bruises or rashes Psychologically is without concerns for anxiety or depression. Results & Data Results & Data ([facility]) Vital Signs (Past 12 Hours) Vital Signs Temp Pulse Resp BP Pulse Ox 05/18/21 07:37 98.1 F 76 18 151/88 H 95 05/18/21 04:42 97.7 F 71 16 130/81 93 05/17/21 22:46 98.1 F 79 18 134/84 95 PG Care Time/CCT Total # of Minutes Spent Total Time Spent with Patient: Total time spent is greater than 50% in coordination of care (as documented) at patient's floor/unit and/or counseling patient: Coding Level of Care Code 50920 Subseq Hosp Care Lvl 2 Diagnoses Acute respiratory failure with hypoxia J96.01 COVID-19 U07.1 Diabetes mellitus E11.9 Diabetes mellitus complication status: without complication Diabetes mellitus jail insulin use: without middle or intermediate school principal use Diabetes mellitus type: type 2 (1) Diabetes mellitus Diabetes mellitus complication status: without complication Diabetes mellitus middle or intermediate school principal insulin use: without middle or intermediate school principal use Diabetes mellitus type: type 2 Qualified Code(s): E11.9 - Type 2 diabetes mellitus without complications
[2021-05-18] MEDS ORDERED: CONSULT PHARMACY STA (14:18)
[2021-05-18] MEDS ORDERED: REMDESIVIR 100 MG in SODIUM CHLORIDE 0.9% 230 ML IV ONE (15:00)
[2021-05-18] MEDS ORDERED: MELATONIN 3 MG TAB PO PRN (21:12)
[2021-05-19 06:04] LABS: Basophils # (auto) 0.01 K/uL (0-0.2); Basophils % (auto) 0.2 %; Hematocrit (blood only) 43.8 % (42-52); Hemoglobin 14.7 g/dL (14.0-18.0); Immature Granulocytes # (auto) 0.01 K/uL (0.00-0.02); Immature Granulocytes % (auto) 0.2 %; Lymphocytes # (auto) 0.93 K/uL (1.2-3.4); Lymphocytes % (auto) 16.3 %; Mean Corpuscular Hemoglobin 31.7 pg (25-34); Mean Corpuscular Hgb Conc 33.6 g/dL (32-36); Mean Corpuscular Volume 94.6 fL (80-100); Mean Platelet Volume 10.3 fL (7.4-10.4); Monocytes # (auto) 0.88 K/uL (0.11-0.59); Monocytes % (auto) 15.5 %; Neutrophils # (auto) 3.86 K/uL (1.4-6.5); Neutrophils % (auto) 67.8 %; Platelet Count 201 K/uL (130-400); RDW Coefficient of Variation 13.2 % (11.5-14.5); RDW Standard Deviation 45.7 fL (36.4-46.3); Red Blood Count 4.63 M/uL (4.7-6.1); White Blood Count 5.69 K/uL (4.8-10.8)
[2021-05-19 06:29] LABS: Albumin Globulin Ratio 1.4 (0.9-2); BUN Creatinine Ratio 30.7 (10-20); Bilirubin,Total 0.5 mg/dl (0.2-1.0); Calcium 8.9 mg/dl (8.5-10.1); Creatinine Clr Calc Pharmacy 115.3 ml/min; Est GFR (African American) 113.7 ml/min; Est GFR (Non-African American) 98.1 ml/min; Globulin 2.9 gm/dl (2.5-4.0); Potassium 4.1 mmol/L (3.5-5.1); Total Protein 6.9 gm/dl (6.0-8.3)
[2021-05-19] MEDS: INSULIN ASPART PER UNIT SC SCH ×2 (08:30→12:15)
[2021-05-19] MEDS: dexAMETHasone 6 MG in SYRINGE 0 ML IV SCH (08:57)
[2021-05-19] MEDS: ENOXAPARIN INJ 40 MG/0.4 ML SYR SQ SCH (08:57)
[2021-05-19] MEDS: lisinopril 2.5 MG TAB PO SCH (08:59)
[2021-05-19] MEDS: INSULIN GLARGINE SOLOSTAR 100 UNITS/ML 3 ML PEN SC SCH (09:27)
[2021-05-19] MEDS ORDERED: REMDESIVIR 100 MG in SODIUM CHLORIDE 0.9% 230 ML IV SCH (12:00)
--- NOTE | 2021-05-24 08:48 | Discharge Summary ---
Date of Service May 19, 2021 Admission HPI Per Admitting Provider 55 yo M Hx DM2, sarcoidosis presents for 6 days of illness including fevers, chills, and URI symptoms. Patient admits to not being vaccinated due to his history of ADR from influenza vaccine "flaring his sarcoidosis". Did a home test for COVID-19 on Thursday which was positive. Today he continued to have high fevers and started having shortness of breath with exertion prompting his ER visit. In the ER he was noted to be hypoxic to 87% on room air, improved to 96% on 2LNC. Noted to be leukopenic, mild transaminitis. CXR revealed multifocal pneumonia. Principal Diagnosis Acute hypoxic respiratory failure COVID-19 positive test (U07.1, COVID-19) with Acute Pneumonia (J12.89, Other viral pneumonia) (If respiratory failure or sepsis present, add as separate assessment) Discharge Exam The patient appeared well Vital signs as documented. No longer requiring oxygen at this time Lungs are scant basilar rales which cleared Cardiac exam, Rhythm is regular.. No murmurs, rubs or gallops. Abdominal exam reveals normal bowel sounds, soft non tender, no masses Extremities are nonedematous and both pedal pulses are normal. Neurologic exam is alert and oriented, no focal loss of strength or sensation Skin is without bruises or rashes Psychologically is without concerns for anxiety or depression. Discharge Data Allergies Allergy/AdvReac Type Severity Reaction Status Date / Time Influenza Virus Vaccines Allergy Severe SARCOIDOSIS Verified 05/16/21 20:28 REACTION Penicillins Allergy Intermediate RASH, SOB Verified 05/16/21 20:28 Consultations 05/16/21 21:45 ED Decision to Admit Stat Hospital Course (1) Acute respiratory failure with hypoxia: 55 yo M Hx sarcoidosis, DM2 admitted for acute hypoxic respiratory failure secondary to COVID-19 pneumonia. Acute hypoxic respiratory failure, COVID-19: Presented with hypoxia with complaints of SOB and fevers at home. Saturating well on room air at this time. 2 step does not require oxygen therapy CXR with multifocal pneumonia. COVID-19 testing positive. Remdesivir 05/16/21 stopped on day of discharge Decadron 6mg daily 05/16/21 will continue as an outpatient Advised vaccination for COVID-19 in the future in the outpatient setting. (2) COVID-19: (3) Diabetes mellitus: DM2:History of, resume Metformin Continue lisinopril. Code Status: FULL CODE FEN: DM2 diet DVT ppx: Lovenox daily Dispo: Med/Surg Total Time Total Time Spent Total Time Spent (In Minutes): It required greater than 30 minutes to prepare this patient for discharge Discharge Plan Discharge Items Patient Disposition: Home - Self-Care Reason For Visit: ACUTE HYPOXIC RESPIRATORY FAILURE,COVID-19 Discharge Diagnosis: covid pneumonia Activity: Per Instructions section Activity Comment: gradually increase activity Non-emergency contact: Primary Care Provider Call non-emergency contact if: your symptoms worsen and you have a fever Follow-up/Referrals: Brooks Smith, DO [Primary Care Provider] - Diet: Carb Consistent or DM2 Addtl Attending Provider Instructions: You have been diagnosed with covid infection, it would be recommended that you quarantine yourself for 10 days from your first test or first symptoms, and if at the 10th day you have no symptoms the you can come off quarantine but use common sense precautions. Quarantine means attempting to stay away from people who have not had an active covid infection in the past, and if you have to be around others to wear a mask even if you are indoors, do not share a room to sleep in with others until you are out of quarantine. Please be kind to yourself with good nutrition and rest while you are recovering, please see your family doctor in an week for a check in to see how you are doing Pending Studies at Discharge: No Stand-Alone Forms: [facility], Work/School Release, Smoking Cessation Medications and DC Order Prescriptions: Continued (DME) OneTouch Ultra Blue Test Strip Strip See Dose Instructions .ROUTE .MEDSUPPLY Qty: 100 RF: 1 lisinopril 2.5 mg tablet 2.5 mg PO DAILY Qty: 90 RF: 3 metformin 500 mg tablet,ER [email or web address] 24 hr 1,000 mg PO QPM Qty: 180 RF: 3 multivitamin Tablet 1 tab PO QPM RF: 0 hydroxyzine HCl 25 mg tablet 25 - 50 mg PO HS PRN (Reason: sleep) RF: 0 Discharge Orders: Discharge Order (Routine); Ordered 05/19/21 Ordered By: Jeremías Michelle Admission Data Admit Date/Time: 05/16/21 22:35 Attending Provider: Jeremías Michelle Admit Provider: Anne-Marie Russ Primary Care Provider: Brooks Smith Other Providers: Rancho Hunter Other Interventions: Discharge Summary Assessment (RN) Last Done: 05/19/21 13:40 Coding Level of Care Code D/C DAY MANAGEMENT >30 MINS Diagnoses Acute respiratory failure with hypoxia J96.01 COVID-19 U07.1 Diabetes mellitus E11.9 Diabetes mellitus type: type 2 Diabetes mellitus director long term care insulin use: without director long term care use Diabetes mellitus complication status: without complication
== END 2021-05-19 14:25 | disposition home or self-care (01) | DRG 177 ==
LOC: ED 19:05 → SUATTDRO 22:35 → 2S 22:35